=== PATIENT | female | born 1985 | race Caucasian/White ===

== ENCOUNTER 2020-11-12 21:19 | Observation (INO) | payer BC, SELFPAY ==
[2020-11-12 21:26] VITALS: BP 180/110; PULSE 118; RESP 17; TEMP 36.8; O2SAT 96; BMI 49.8
--- NOTE | 2020-11-12 21:49 | W.ED.ABDPA2 ---
Documented by User: JASON Shay 11/13/20 00:27 HPI - Abdominal Pain General: Chief Complaint: Abdominal Pain Stated Complaint: lower r sided abd pain/fever Time Seen by Provider: 11/12/20 21:38 History of Present Illness: HPI narrative: Patient is a 35-year-old female comes to the ED with abdominal pain. Patient says symptoms started this morning when she woke up. The pain is located in the right lower quadrant of her abdomen and she says its continue to get worse throughout the day. She says the pain is achy and is a 5 out of 10 if she is still and at rest but if she gets up and moves around it goes up to approximately an 8 out of 10. She took her temperature at home and said it was around 99 ?F. She reports a decreased appetite today but was able to eat and keep food down and says it did not cause any worsening pain. Denies any nausea, vomiting, bladder or bowel symptoms. Patient has a past surgical history of hysterectomy. Associated Symptoms: Denies chills, constipation, diarrhea, dysuria, fever(s), hematochezia, hematuria, nausea and vomiting Review of Systems Const: Reports: change in appetite (Decreased appetite today); Denies: fever(s), chills or fatigue Eyes: Denies: change in vision or eye discomfort ENMT: Denies: throat pain, odynophagia, nasal discharge or nasal congestion Card: Denies: chest pain, palpitations, edema, swelling of feet/ankles, dyspnea on exertion or orthopnea Resp: Denies: dyspnea, productive cough or non-productive cough GI: Reports: abdominal pain; Denies: nausea, vomiting, diarrhea, constipation or hematochezia : Denies: flank pain, dysuria or hematuria Musc: Denies: neck pain, back pain or extremity swelling Skin/Breast: Denies: rash or new lesions Neuro: Denies: headache(s), numbness in extremities or weakness in extremities Physical Exam Const: COMMON NORMALS: no acute distress, patient oriented x3 and alert GENERAL APPEARANCE: cooperative and comfortable NUTRITIONAL APPEARANCE: obese HENMT: COMMON NORMALS: normocephalic HEAD & SCALP: normocephalic MOUTH: Normal oral and palatal mucosa present THROAT: posterior oropharynx normal and uvula midline Eye: COMMON NORMALS: Equal, round and reactive pupils present PUPIL: Yes Equal, round and reactive pupils present Neck/C-Spine: COMMON NORMALS: supple GENERAL: Yes normal visual inspection Resp: COMMON NORMALS: normal respiratory effort, No retractions, No use of accessory muscles and clear to auscultation bilaterally AUSCULTATION: clear to auscultation bilaterally Cardio: COMMON NORMALS: regular rate, regular rhythm, S1 normal heart sound present, S2 normal heart sound present, No gallops present (Cardio), No clicks present (Cardio), No murmurs present (Cardio) and Peripheral pulses 2+ throughout RATE: regular rate RHYTHM: regular rhythm HEART SOUNDS: S1 normal heart sound present and S2 normal heart sound present PERIPHERAL PULSES: Peripheral pulses 2+ throughout GI: COMMON NORMALS: Normal to inspection, nondistended, normoactive bowel sounds present, Soft to palpation and no masses INSPECTION: Yes central obesity PALPATION: Yes Soft to palpation and Yes Tenderness to palpation present (GI) (No peritoneal signs) Details: RLQ (Positive McBurney's point tenderness) : COMMON NORMALS: Yes no CVA tenderness BLADDER/KIDNEY EXAM: Yes no CVA tenderness Back/Pelvis: COMMON NORMALS: no CVA tenderness Extremity: COMMON NORMALS: normal to inspection Neuro: COMMON NORMALS: patient oriented x3 SENSORIUM/ORIENTATION: Yes alert Skin: GENERAL SKIN EXAM: dry skin Course Consultations: Consultation #1: I contacted Dr. Jacobs the general surgeon on-call and told about patient case, exam findings of right lower quadrant tenderness, white blood cell count 12.[address] of the abdomen showing acute appendicitis. Dr. Jacobs agreed to have patient admitted anywhere me to start patient on IV Zosyn. Time: 11:38 Vital Signs: Vital signs: Vital Signs Temperature 98.2 F 11/12/20 21:26 Pulse Rate 84 11/12/20 23:01 Respiratory Rate 18 11/12/20 23:01 Blood Pressure 183/93 11/12/20 23:01 Pulse Oximetry 97 11/12/20 21:59 MDM - Abdominal Pain MDM Narrative: Medical decision making narrative: Patient is a 35-year-old female comes to the ED with right lower quadrant abdominal pain. She has tenderness to the right lower quadrant and positive McBurney's point but no peritoneal signs. White blood cell count 12.9 the rest of the labs are unremarkable. CT of abdomen pelvis shows acute appendicitis. I contacted Dr. Jacobs and told outpatient case and he wanted patient to be admitted and started on IV Zosyn. I discussed plan of care with patient and she understood and agreed with plan and Dr. Conde will be placing the admitting orders. Lab Data: Attestation: I reviewed the patient's lab results. Labs: Lab Results 11/12/20 11/12/20 11/12/20 Range/Units 21:45 22:05 22:05 WBC 12.9 H (4.0-10.0) 10^3/ uL RBC 4.10 (4.1-5.3) 10^6/u L Hgb 12.6 (11.5-15.3) g/dL Hct 37.4 (37.0-47.0) % MCV 91.2 (81-99) fl MCH 30.7 (28.0-34.0) pg MCHC 33.7 (30.0-36.0) g/dL RDW 12.5 (12.1-15.1) % Plt Count 247 (130-400) 10^3/c mm MPV 10.5 H (7.4-10.4) fL Neut % (Auto) 66.1 % Lymph % (Auto) 24.4 % [place] % (Auto) 8.0 % Eos % (Auto) 0.7 % Baso % (Auto) 0.3 % Neut # (Auto) 8.50 H (1.8-7.7) 10^3/u L Lymph # (Auto) 3.1 (0.8-4.8) 10^3/u L [place] # (Auto) 1.0 H (0.2-0.9) 10^3/u L Eos # (Auto) 0.1 (0.0-0.8) 10^3/u L Baso # (Auto) 0.0 (0.0-0.1) 10^3/u L Nucleated RBC % (a uto) 0 % Nucleated RBCs # 0.0 /100WBC Sodium 137 (136-145) mmol/L Potassium 3.6 (3.5-5.1) mmol/L Chloride 102 (98-107) mmol/L Carbon Dioxide 23 (22-29) mmol/L Anion Gap 15.6 (5-19) BUN 21 H (6-20) mg/dL Creatinine 0.9 (0.5-0.9) mg/dL GFR Calculation 70.5 L (90-130) mL/min Glucose 101 (65-115) mg/dL Calculated Osmolal ity 287 (285-295) mOsm/k g Calcium 9.1 (8.5-10.5) mg/dL Total Bilirubin 0.4 (0.15-1.2) mg/dL AST 18 (0-32) U/L ALT 19 (0-33) U/L Alkaline Phosphata se 49 (35-105) IU/L Total Protein 7.3 (6.6-8.7) g/dL Albumin 4.0 (3.5-5.2) g/dL Globulin 3.3 (1.3-4.6) g/dL Lipase 38 (13-60) U/L HCG, Qual (Negative) Urine Color Yellow (Yellow) Urine Appearance Clear (CLEAR) Urine pH 5 (5-7) Ur Specific Gravit y 1.020 (1.005-1.030) Urine Protein Neg (Negative) Urine Glucose (UA) Norm (Normal) Urine Ketones Negative (Negative) Urine Blood Neg (Negative) Urine Nitrate Negative (Negative) Urine Bilirubin Neg (Negative) Urine Urobilinogen 1 H (Negative) mg/dL Ur Leukocyte Kayla ase Negative (Negative) Urine RBC None (0-2) /hpf Urine WBC None (0-5) /hpf Ur Squamous Epith Cells 0-4 H (0-5) /hpf Amorphous Sediment Not Reportable Urine Bacteria Trace (NONE) /hpf 11/12/20 Range/Units 22:05 WBC (4.0-10.0) 10^3/ uL RBC (4.1-5.3) 10^6/u L Hgb (11.5-15.3) g/dL Hct (37.0-47.0) % MCV (81-99) fl MCH (28.0-34.0) pg MCHC (30.0-36.0) g/dL RDW (12.1-15.1) % Plt Count (130-400) 10^3/c mm MPV (7.4-10.4) fL Neut % (Auto) % Lymph % (Auto) % [place] % (Auto) % Eos % (Auto) % Baso % (Auto) % Neut # (Auto) (1.8-7.7) 10^3/u L Lymph # (Auto) (0.8-4.8) 10^3/u L [place] # (Auto) (0.2-0.9) 10^3/u L Eos # (Auto) (0.0-0.8) 10^3/u L Baso # (Auto) (0.0-0.1) 10^3/u L Nucleated RBC % (a uto) % Nucleated RBCs # /100WBC Sodium (136-145) mmol/L Potassium (3.5-5.1) mmol/L Chloride (98-107) mmol/L Carbon Dioxide (22-29) mmol/L Anion Gap (5-19) BUN (6-20) mg/dL Creatinine (0.5-0.9) mg/dL GFR Calculation (90-130) mL/min Glucose (65-115) mg/dL Calculated Osmolal ity (285-295) mOsm/k g Calcium (8.5-10.5) mg/dL Total Bilirubin (0.15-1.2) mg/dL AST (0-32) U/L ALT (0-33) U/L Alkaline Phosphata se (35-105) IU/L Total Protein (6.6-8.7) g/dL Albumin (3.5-5.2) g/dL Globulin (1.3-4.6) g/dL Lipase (13-60) U/L HCG, Qual Negative (Negative) Urine Color (Yellow) Urine Appearance (CLEAR) Urine pH (5-7) Ur Specific Gravit y (1.005-1.030) Urine Protein (Negative) Urine Glucose (UA) (Normal) Urine Ketones (Negative) Urine Blood (Negative) Urine Nitrate (Negative) Urine Bilirubin (Negative) Urine Urobilinogen (Negative) mg/dL Ur Leukocyte Kayla ase (Negative) Urine RBC (0-2) /hpf Urine WBC (0-5) /hpf Ur Squamous Epith Cells (0-5) /hpf Amorphous Sediment Urine Bacteria (NONE) /hpf Imaging Data ^: CT Abd/Pel: Attestation: I personally reviewed and interpreted this imaging study as follows: Radiologist's impression: [employer] [address] [address] Scan Report Signed with Heather Patient: Shani Baron Unit #: [id number] : 1985 Age/Sex: 35 / F ADM Date: 11/12/20 Loc: ER Room/Bed: Attending Dr: Ordering Provider/Ordering MD: Valerie Choudhury Date of Service: 11/12/20 Procedure(s): CT abdomen pelvis w con* [id number] Accession Number(s): [id number] Report Number: [id number]/CT abdomen pelvis w con* [id number] THIS REPORT CONTAINS FINDINGS THAT MAY BE CRITICAL TO PATIENT CARE. The findings were verbally communicated via telephone conference with VALERIE CHOUDHURY at 11:15 PM CDT on 11/12/2020. The findings were acknowledged and understood. Radiation Dose CTDIVOL = (mGy): DLP = 1715.94 (mGy-cm) Addendum Dictated By: Sang Oneal Addendum Signed By: Sang Oneal Signed Date/Time: 11/12/20 9026 Addendum Cosigned By: PROCEDURE INFORMATION: Exam: CT Abdomen And Pelvis With Contrast Exam date and time: 11/12/2020 9:53 PM Age: 35 years old Clinical indication: Abdominal pain; Localized; Right lower quadrant (rlq); Prior surgery; Surgery date: 6+ months; Surgery type: Hyst; Patient HX: C/O rlq abd pain; Additional info: Rlq abdominal pain TECHNIQUE: Imaging protocol: Computed tomography of the abdomen and pelvis with contrast. Radiation optimization: All CT scans at this facility use at least one of these dose optimization techniques: automated exposure control; mA and/or kV adjustment per patient size (includes targeted exams where dose is matched to clinical indication); or iterative reconstruction. Contrast material: OMNI 300; Contrast volume: 95 ml; Contrast route: INTRAVENOUS (IV); COMPARISON: CR Chest 2 views* [id number] 04/01/2018 4:59 PM RADIATION DOSE METRICS: Total DLP (mGy-cm): 1715.94 FINDINGS: Liver: Normal. No mass. Gallbladder and bile ducts: Normal. No calcified stones. No ductal dilation. Pancreas: Normal. No ductal dilation. Spleen: Normal. No splenomegaly. Adrenal glands: Normal. No mass. Kidneys and ureters: Normal. No hydronephrosis. Stomach and bowel: Unremarkable. No obstruction. No mucosal thickening. Appendix: The appendix is well seen. Thickened appearance up to 13 mm. There is no significant stranding around the appendix. There is a small calcified appendicolith in the mid body portion. Intraperitoneal space: No intraperitoneal fluid collection. No free intraperitoneal air. Vasculature: Unremarkable. No abdominal aortic aneurysm. Lymph nodes: Unremarkable. No enlarged lymph nodes. Urinary bladder: Unremarkable as visualized. Reproductive: Small cyst of the left ovary measures 3.6 cm x 3.[address] features. Uterus is small in volume. No dedicated follow-up recommended for this finding. Bones/joints: Unremarkable. No acute fracture. Soft tissues: Unremarkable. CT/CT abdomen pelvis w con* [id number] IMPRESSION: The appendix has an abnormal diameter. There is no appreciable inflammatory stranding changes around the appendix. The finding is equivocal for acute appendicitis. Clinical correlation necessary. Radiation Dose CTDIVOL = (mGy): DLP = 1715.94 (mGy-cm) Dictated By: Sang Oneal Signed By: Sang Oneal Signed Date/Time: 11/12/202312 DD/ 10 Discharge Plan Discharge Admit Provider: Ronal Jacobs Coding Level of Care Code ED Assembling Motor Builder for Chg Fwd Exam Comprehensive Documented by User: Gab Conde DO 11/13/20 00:53 HPI - Abdominal Pain General: Chief Complaint: Abdominal Pain Stated Complaint: lower r sided abd pain/fever Time Seen by Provider: 11/12/20 21:38 Course Vital Signs: Vital signs: Vital Signs Temperature 98.2 F 11/12/20 21:26 Pulse Rate 84 11/12/20 23:01 Respiratory Rate 18 11/12/20 23:01 Blood Pressure 183/93 11/12/20 23:01 Pulse Oximetry 97 11/12/20 21:59 MDM - Abdominal Pain MDM Narrative: Medical decision making narrative: 35-year-old patient seen by Mr. Choudhury, JASON?Simeon. I agree with his history, evaluation, and treatment. This lady has acute appendicitis. Surgeon was consulted from the ER, and will see the patient as an inpatient. Observation orders were written by me. Lab Data: Labs: Lab Results 11/12/20 11/12/20 11/12/20 Range/Units 21:45 22:05 22:05 WBC 12.9 H (4.0-10.0) 10^3/ uL RBC 4.10 (4.1-5.3) 10^6/u L Hgb 12.6 (11.5-15.3) g/dL Hct 37.4 (37.0-47.0) % MCV 91.2 (81-99) fl MCH 30.7 (28.0-34.0) pg MCHC 33.7 (30.0-36.0) g/dL RDW 12.5 (12.1-15.1) % Plt Count 247 (130-400) 10^3/c mm MPV 10.5 H (7.4-10.4) fL Neut % (Auto) 66.1 % Lymph % (Auto) 24.4 % [place] % (Auto) 8.0 % Eos % (Auto) 0.7 % Baso % (Auto) 0.3 % Neut # (Auto) 8.50 H (1.8-7.7) 10^3/u L Lymph # (Auto) 3.1 (0.8-4.8) 10^3/u L [place] # (Auto) 1.0 H (0.2-0.9) 10^3/u L Eos # (Auto) 0.1 (0.0-0.8) 10^3/u L Baso # (Auto) 0.0 (0.0-0.1) 10^3/u L Nucleated RBC % (a uto) 0 % Nucleated RBCs # 0.0 /100WBC Sodium 137 (136-145) mmol/L Potassium 3.6 (3.5-5.1) mmol/L Chloride 102 (98-107) mmol/L Carbon Dioxide 23 (22-29) mmol/L Anion Gap 15.6 (5-19) BUN 21 H (6-20) mg/dL Creatinine 0.9 (0.5-0.9) mg/dL GFR Calculation 70.5 L (90-130) mL/min Glucose 101 (65-115) mg/dL Calculated Osmolal ity 287 (285-295) mOsm/k g Calcium 9.1 (8.5-10.5) mg/dL Total Bilirubin 0.4 (0.15-1.2) mg/dL AST 18 (0-32) U/L ALT 19 (0-33) U/L Alkaline Phosphata se 49 (35-105) IU/L Total Protein 7.3 (6.6-8.7) g/dL Albumin 4.0 (3.5-5.2) g/dL Globulin 3.3 (1.3-4.6) g/dL Lipase 38 (13-60) U/L HCG, Qual (Negative) Urine Color Yellow (Yellow) Urine Appearance Clear (CLEAR) Urine pH 5 (5-7) Ur Specific Gravit y 1.020 (1.005-1.030) Urine Protein Neg (Negative) Urine Glucose (UA) Norm (Normal) Urine Ketones Negative (Negative) Urine Blood Neg (Negative) Urine Nitrate Negative (Negative) Urine Bilirubin Neg (Negative) Urine Urobilinogen 1 H (Negative) mg/dL Ur Leukocyte Kayla ase Negative (Negative) Urine RBC None (0-2) /hpf Urine WBC None (0-5) /hpf Ur Squamous Epith Cells 0-4 H (0-5) /hpf Amorphous Sediment Not Reportable Urine Bacteria Trace (NONE) /hpf 11/12/20 Range/Units 22:05 WBC (4.0-10.0) 10^3/ uL RBC (4.1-5.3) 10^6/u L Hgb (11.5-15.3) g/dL Hct (37.0-47.0) % MCV (81-99) fl MCH (28.0-34.0) pg MCHC (30.0-36.0) g/dL RDW (12.1-15.1) % Plt Count (130-400) 10^3/c mm MPV (7.4-10.4) fL Neut % (Auto) % Lymph % (Auto) % [place] % (Auto) % Eos % (Auto) % Baso % (Auto) % Neut # (Auto) (1.8-7.7) 10^3/u L Lymph # (Auto) (0.8-4.8) 10^3/u L [place] # (Auto) (0.2-0.9) 10^3/u L Eos # (Auto) (0.0-0.8) 10^3/u L Baso # (Auto) (0.0-0.1) 10^3/u L Nucleated RBC % (a uto) % Nucleated RBCs # /100WBC Sodium (136-145) mmol/L Potassium (3.5-5.1) mmol/L Chloride (98-107) mmol/L Carbon Dioxide (22-29) mmol/L Anion Gap (5-19) BUN (6-20) mg/dL Creatinine (0.5-0.9) mg/dL GFR Calculation (90-130) mL/min Glucose (65-115) mg/dL Calculated Osmolal ity (285-295) mOsm/k g Calcium (8.5-10.5) mg/dL Total Bilirubin (0.15-1.2) mg/dL AST (0-32) U/L ALT (0-33) U/L Alkaline Phosphata se (35-105) IU/L Total Protein (6.6-8.7) g/dL Albumin (3.5-5.2) g/dL Globulin (1.3-4.6) g/dL Lipase (13-60) U/L HCG, Qual Negative (Negative) Urine Color (Yellow) Urine Appearance (CLEAR) Urine pH (5-7) Ur Specific Gravit y (1.005-1.030) Urine Protein (Negative) Urine Glucose (UA) (Normal) Urine Ketones (Negative) Urine Blood (Negative) Urine Nitrate (Negative) Urine Bilirubin (Negative) Urine Urobilinogen (Negative) mg/dL Ur Leukocyte Kayla ase (Negative) Urine RBC (0-2) /hpf Urine WBC (0-5) /hpf Ur Squamous Epith Cells (0-5) /hpf Amorphous Sediment Urine Bacteria (NONE) /hpf Discharge Plan Discharge Admit Provider: Reynaldo,Ronal Coding Level of Care Code ED Assembling Motor Builder for Chg Fwd Exam Comprehensive
--- NOTE | 2020-11-12 21:53 | CTR_ITS ---
PROCEDURE INFORMATION: Exam: CT Abdomen And Pelvis With Contrast Exam date and time: 11/12/2020 9:53 PM Age: 35 years old Clinical indication: Abdominal pain; Localized; Right lower quadrant (rlq); Prior surgery; Surgery date: 6+ months; Surgery type: Hyst; Patient HX: C/O rlq abd pain; Additional info: Rlq abdominal pain TECHNIQUE: Imaging protocol: Computed tomography of the abdomen and pelvis with contrast. Radiation optimization: All CT scans at this facility use at least one of these dose optimization techniques: automated exposure control; mA and/or kV adjustment per patient size (includes targeted exams where dose is matched to clinical indication); or iterative reconstruction. Contrast material: OMNI 300; Contrast volume: 95 ml; Contrast route: INTRAVENOUS (IV); COMPARISON: CR Chest 2 views* [id number] 04/01/2018 4:59 PM RADIATION DOSE METRICS: Total DLP (mGy-cm): 1715.94 FINDINGS: Liver: Normal. No mass. Gallbladder and bile ducts: Normal. No calcified stones. No ductal dilation. Pancreas: Normal. No ductal dilation. Spleen: Normal. No splenomegaly. Adrenal glands: Normal. No mass. Kidneys and ureters: Normal. No hydronephrosis. Stomach and bowel: Unremarkable. No obstruction. No mucosal thickening. Appendix: The appendix is well seen. Thickened appearance up to 13 mm. There is no significant stranding around the appendix. There is a small calcified appendicolith in the mid body portion. Intraperitoneal space: No intraperitoneal fluid collection. No free intraperitoneal air. Vasculature: Unremarkable. No abdominal aortic aneurysm. Lymph nodes: Unremarkable. No enlarged lymph nodes. Urinary bladder: Unremarkable as visualized. Reproductive: Small cyst of the left ovary measures 3.6 cm x 3.[address] features. Uterus is small in volume. No dedicated follow-up recommended for this finding. Bones/joints: Unremarkable. No acute fracture. Soft tissues: Unremarkable. CT/CT abdomen pelvis w con* [id number] IMPRESSION: The appendix has an abnormal diameter. There is no appreciable inflammatory stranding changes around the appendix. The finding is equivocal for acute appendicitis. Clinical correlation necessary. Radiation Dose CTDIVOL = (mGy): DLP = 1715.94 (mGy-cm)
[2020-11-12 21:59] VITALS: BP 152/90; PULSE 84; RESP 18; O2SAT 97
[2020-11-12 22:16] LABS: Basophils % 0.3 %; Eosinophils # 0.1 10^3/uL (0.0-0.8); Eosinophils % 0.7 %; Hematocrit 37.4 % (37.0-47.0); Hemoglobin 12.6 g/dL (11.5-15.3); Lymphocytes # 3.1 10^3/uL (0.8-4.8); Lymphocytes % 24.4 %; Mean Corpuscular HGB Conc 33.7 g/dL (30.0-36.0); Mean Corpuscular Hemoglobin 30.7 pg (28.0-34.0); Mean Corpuscular Volume 91.2 fl (81-99); Mean Platelet Volume 10.5 fL (7.4-10.4); Neutrophils % 66.1 %; Nucleated Red Blood Cells % 0 %; Platelet Count 247 10^3/cmm (130-400); Red Cell Distribution Width 12.5 % (12.1-15.1); White Blood Count 12.9 10^3/uL (4.0-10.0)
[2020-11-12] MEDS: sodium chloride 0.9% 500 ML 999 ML IV (22:25)
[2020-11-12] MEDS: iohexol 300 mg/mL 100 mL Btl IV (22:25)
[2020-11-12 22:38] LABS: HCG, Serum Qual Negative (Negative)
[2020-11-12 22:44] LABS: Alanine Aminotransferase 19 U/L (0-33); Alkaline Phosphatase 49 IU/L (35-105); Anion Gap 15.6 (5-19); Aspartate Amino Transferase 18 U/L (0-32); Blood Urea Nitrogen 21 mg/dL (6-20); Calcium 9.1 mg/dL (8.5-10.5); Carbon Dioxide 23 mmol/L (22-29); Chloride 102 mmol/L (98-107); Globulin 3.3 g/dL (1.3-4.6); Glomerular Filtration Rate 70.5 mL/min (90-130); Glucose 101 mg/dL (65-115); Lipase 38 U/L (13-60); Osmolality Calculated 287 mOsm/kg (285-295); Potassium 3.6 mmol/L (3.5-5.1); Sodium 137 mmol/L (136-145); Total Bilirubin 0.4 mg/dL (0.15-1.2); Total Protein 7.3 g/dL (6.6-8.7)
[2020-11-12 23:00] LABS: Bilirubin Urine Neg (Negative); Blood Urine Neg (Negative); Glucose Urine UA Norm (Normal); Ketones Urine Negative (Negative); Leukocyte Esterase Urine Negative (Negative); Nitrate Urine Negative (Negative); Protein Urine Neg (Negative); Urine Appearance Clear (CLEAR); Urine Color Yellow (Yellow); Urobilinogen Urine 1 mg/dL (Negative); pH Urine 5 (5-7)
[2020-11-12 23:01] VITALS: BP 183/93; PULSE 84; RESP 18
[2020-11-12 23:01] LABS: Add Urine Culture? No; Bacteria Urine TRACE /hpf; Squamous Epithelial Cell Urine 0-4 /hpf (0-5)
[2020-11-13] VITALS (16 sets, daily range): BP systolic 133–180; BP diastolic 68–103; PULSE 70–102; RESP 15–19; TEMP 36.3–36.8; O2SAT 93–100; BMI 55.6
[2020-11-13] MEDS: ketorolac 30 mg/mL INJ IVP (00:48)
[2020-11-13] MEDS: piperacillin-tazobactam 3.375 GM in sodium chloride 0.9% (plus) 50 ML IV (00:49)
--- NOTE | 2020-11-13 00:59 | PC.NURSE ---
Resting, eyes closed, easily awakened. Repositioned for comfort. Lights down at pt request. Denies further needs at this time. VSS.
[2020-11-13] MEDS: lactated ringers 1,000 ML 125 ML IV (01:57)
[2020-11-13] MEDS: piperacillin-tazobactam 3.375 GM in sodium chloride 0.9% (plus) 100 ML IV (09:15)
--- NOTE | 2020-11-13 09:47 | PC.NURSE ---
updated patient's mom on patient going to surgery this morning. patient was just taken to surgery
--- NOTE | 2020-11-13 10:01 | P.ANESASSM_ITS ---
Pre-Anesthetic Assessment Pre-Anesthetic Assessment: Height/Weight: Height 1.63 m Weight 147.021 kg Temp Pulse Resp BP Pulse Ox 97.9 F 84 18 143/92 99 11/13/20 08:00 11/13/20 09:58 11/13/20 09:58 11/13/20 09:58 11/13/20 09:58 Preop Diagnosis: acute appendicitis Proposed Procedure: Operation Date: 11/13/20 10:30 Proposed Procedures p Laparoscopic Appendectomy(Not Applicable) - Ronal Jacobs MD Familial anesthetic complications: PONV Was Beta Chele taken within 24 hours: N/A Was Clonidine taken within 24 hours: N/A Last intake: Intake Last Liquid Date 11/12/20 Last Liquid Time 18:00 Last Solid Date 11/12/20 Last Solid Time 18:00 Social: Social History: No alcohol and No tobacco Exam: Pre-Anes Outpt Exam: alert, oriented x 3, clear to auscultation bilaterally and regular rate & rhythm Airway: Cervical ROM: WNL MP: 3 Dentition: Full CV/HEM: CV/HEM: HTN GI: GI: GERD Metabolic: Metabolic: Morbid obesity Anesthetic Plan: ASA status: 2 Anesthesia: General Risk of > 500 ml b lood loss (7ml/kg in children): No Meds/Allergies Current Medications: Current Medications Generic Name Dose Route Start Last Admin Trade Name Freq PRN Reason Stop Dose Admin Lactated Ringer's 1,000 mls @ 125 m ls/hr 11/13/20 01:24 11/13/20 01:57 Lactated Ringers IV 125 mls/hr .Q8H DEWAYNE Administration Piperacillin Sod/T azobactam 100 mls @ 25 mls/ hr 11/13/20 09:00 11/13/20 09:15 Sod 3.375 gm/ So dium Chloride IV 25 mls/hr Q8H DEWAYNE Administration Protocol Data Anesthesia CBC & Chem 7: 11/12/20 22:05 11/12/20 22:05 Other Labs: Laboratory Results - last 48 hr 11/12/20 11/12/20 11/12/20 21:45 22:05 22:05 WBC 12.9 H RBC 4.10 Hgb 12.6 Hct 37.4 MCV 91.2 MCH 30.7 MCHC 33.7 RDW 12.5 Plt Count 247 MPV 10.5 H Neut % (Auto) 66.1 Lymph % (Auto) 24.4 [place] % (Auto) 8.0 Eos % (Auto) 0.7 Baso % (Auto) 0.3 Neut # (Auto) 8.50 H Lymph # (Auto) 3.1 [place] # (Auto) 1.0 H Eos # (Auto) 0.1 Baso # (Auto) 0.0 Nucleated RBC % (auto) 0 Nucleated RBCs # 0.0 Sodium 137 Potassium 3.6 Chloride 102 Carbon Dioxide 23 Anion Gap 15.6 BUN 21 H Creatinine 0.9 GFR Calculation 70.5 L Glucose 101 Calculated Osmolality 287 Calcium 9.1 Total Bilirubin 0.4 AST 18 ALT 19 Alkaline Phosphatase 49 Total Protein 7.3 Albumin 4.0 Globulin 3.3 Lipase 38 HCG, Qual Urine Color Yellow Urine Appearance Clear Urine pH 5 Ur Specific [place] 1.020 Urine Protein Neg Urine Glucose (UA) Norm Urine Ketones Negative Urine Blood Neg Urine Nitrate Negative Urine Bilirubin Neg Urine Urobilinogen 1 H Ur Leukocyte Esterase Negative Urine RBC None Urine WBC None Ur Squamous Epith Cells 0-4 H Amorphous Sediment Not Reportable Urine Bacteria Trace 11/12/20 22:05 WBC RBC Hgb Hct MCV MCH MCHC RDW Plt Count MPV Neut % (Auto) Lymph % (Auto) [place] % (Auto) Eos % (Auto) Baso % (Auto) Neut # (Auto) Lymph # (Auto) [place] # (Auto) Eos # (Auto) Baso # (Auto) Nucleated RBC % (auto) Nucleated RBCs # Sodium Potassium Chloride Carbon Dioxide Anion Gap BUN Creatinine GFR Calculation Glucose Calculated Osmolality Calcium Total Bilirubin AST ALT Alkaline Phosphatase Total Protein Albumin Globulin Lipase HCG, Qual Negative Urine Color Urine Appearance Urine pH Ur Specific [place] Urine Protein Urine Glucose (UA) Urine Ketones Urine Blood Urine Nitrate Urine Bilirubin Urine Urobilinogen Ur Leukocyte Esterase Urine RBC Urine WBC Ur Squamous Epith Cells Amorphous Sediment Urine Bacteria Cardiac Studies: No Data to Display
--- NOTE | 2020-11-13 10:09 | P.HP_ITS ---
Providers/Chief Complaint Admitting Physician: Ronal Jacobs MD Primary Care Provider: Sariah Hoff Chief Complaint: lower r sided abd pain/fever History of Present Illness Shani Baron is a 35 year old female who presented to the ER last night after she woke up yesterday morning with right-sided abdominal pain. The pain did not radiate, was worse with physical activity and progressively got worse during the course of the day. She denies any nausea, vomiting, fevers, chills, constipation or diarrhea. No urinary symptoms. Review of Systems General: Reports: 10 or more systems reviewed and unremarkable except in HPI and below Medications/Allergies Home Medications Medication Instructions Recorded Confirmed Last Taken Type lisinopril 20 mg PO DAILY 11/13/20 11/13/20 Unknown History omeprazole 40 mg PO DAILY 11/13/20 11/13/20 Unknown History Allergies Allergy/AdvReac Type Severity Reaction Status Date / Time hydrocodone Allergy ALGY-Hives Verified 11/12/20 21:29 prednisone Allergy ALGY-Swell Verified 11/12/20 21:29 Lip/Tongue/Throat PFSH Acute PFSH: Medical History GERD (gastroesophageal reflux disease) Hypertension Surgical History History of delivery S/P partial hysterectomy Vitals/I&O/Wt Last Vital Signs Temp 97.9 F 11/13/20 08:00 Pulse 84 11/13/20 09:58 Resp 18 11/13/20 09:58 BP 143/92 11/13/20 09:58 Pulse Ox 99 11/13/20 09:58 11/12/20 11/13/20 11/13/20 22:59 06:59 14:59 Intake Total 550 / 550 Balance 550 / 550 Weight last 48 hrs Weight 324 lb 2 oz Weight 290 lb Physical Exam Narrative: EXAM NARRATIVE: HEENT: Normocephalic Eye: Sclera /conjunctiva normal Respiratory and chest: Bilateral clear breath sounds on auscultation Cardiovascular: Normal S1 and S2 heart sounds Abdomen: Soft to palpation, tender right lower quadrant, voluntary guarding, no rigidity Neurological: Oriented to place person and time Skin: Intact, no lesions appreciated on gross exam Data : 11/12/20 22:05 11/12/20 22:05 A&P Assessment and plan (1) Acute appendicitis: 35-year-old female with right lower quadrant pain, WBC 12.[address] scan showing acute appendicitis without any evidence of perforation Plan for laparoscopic possible open appendectomy Procedure, risks, benefits and alternatives have been discussed with the patient who wishes to proceed with surgery. Status: Acute Attestations Medical Necessity Statement*: Acute appendicitis Coding Level of Care Code Acute [facility] Diagnoses Acute appendicitis K35.80
[2020-11-13] MEDS: meperidine 50 mg/mL INJ 12.5 MG IVP (11:29)
[2020-11-13] MEDS: oxyCODONE-APAP 5-325 mg Tablet 1 TAB PO (12:11)
[2020-11-13] MEDS: sodium chloride 0.9% 1,000 ML 30 ML IV (12:14)
--- NOTE | 2020-11-13 13:01 | P.OP_ITS ---
Operative Report Date of procedure: November 13, 2020 Pre-op Diagnosis: acute appendicitis Post-op diagnosis: same Procedure Done: Laparoscopic appendectomy Specimens removed/disposition: Appendix Surgeon: Ronal Jacobs Anesthesia: General Condition: stable Disposition: PACU Procedure: The patient was taken to the Operating Room and intubated under general anesthesia after antibiotic had been administered. Using a 15 blade, a 1-cm infraumbilical incision was made and using open Mary Jane technique, the peritoneal cavity was entered. A 12mm port with balloon was placed and 14 mm of pneumoperitoneum was created and 10-mm 30 degree scope was introduced. Two separate 5mm ports were placed in the left and right lower quadrant under direct visualization. The appendix was noted in the right lower quadrant and appeared acutely inflamed.. Using [place] forceps, an opening was made in the mesoappendix near the base of the appendix. An Endo KRISTOFER stapler 45mm long 3.5mm blue load was introduced to divide the appendix at it's base. Using electrocau home, the mesoappendix including the appendicular artery was divided. There was no bleeding noted and the staple line appeared intact. An EndoCatch bag was introduced to remove the appendix. All three ports were removed under direct visualization and there was no bleeding noted on the port sites. 10 cc of 0.5% Marcaine was infiltrated at the port sites. The fascia at the umbilical port was closed using figure of eight 0-Vicryl sutures and subcutaneous tissue was approximated using 3-0 Vicryl and skin at all 3 port sites was closed using 4-0 Monocryl and Dermabond.
--- NOTE | 2020-11-13 13:02 | P.DS_ITS ---
Discharge Providers Date of Admission: 11/13/20 01:24 Date of Discharge: November 13, 2020 Attending Provider at Admission: Ronal Jacobs MD Attending Provider at Discharge: Ronal Jacobs MD Primary Care Provider: Sariah Luis Eduardo Diagnoses at Discharge Discharge Diagnosis (1) Acute appendicitis: Status: Resolved Reason for Visit Reason for Visit: lower r sided abd pain/fever Hospital Course Hospital Course Shani Baron is a 35 year old female who presented to the ER last night after she woke up yesterday morning with right-sided abdominal pain. The pain did not radiate, was worse with physical activity and progressively got worse during the course of the day. She denies any nausea, vomiting, fevers, chills, constipation or diarrhea. No urinary symptoms. Patient was admitted overnight for IV antibiotics and underwent laparoscopic appendectomy. At time of discharge her vital signs are stable, she is tolerating a clear liquid diet and pain controlled with oral pain medications. Discharge Data Data Completed and Pending: Completed Studies During Hospitalization Category Date Time Status CT abdomen pelvis w con* [id number] Urge nt Cat Scan 11/12/20 21:53 Completed Pending at discharge Category Date Time Status Pathology: Surgic al [PTH] Routine Pth 11/13/20 10:46 Received Labs from last 24 hours 11/12/20 11/12/20 11/12/20 22:05 22:05 22:05 WBC 12.9 H RBC 4.10 Hgb 12.6 Hct 37.4 MCV 91.2 MCH 30.7 MCHC 33.7 RDW 12.5 Plt Count 247 MPV 10.5 H Neut % (Auto) 66.1 Lymph % (Auto) 24.4 [place] % (Auto) 8.0 Eos % (Auto) 0.7 Baso % (Auto) 0.3 Neut # (Auto) 8.50 H Lymph # (Auto) 3.1 [place] # (Auto) 1.0 H Eos # (Auto) 0.1 Baso # (Auto) 0.0 Nucleated RBC % (a uto) 0 Nucleated RBCs # 0.0 Sodium 137 Potassium 3.6 Chloride 102 Carbon Dioxide 23 Anion Gap 15.6 BUN 21 H Creatinine 0.9 GFR Calculation 70.5 L Glucose 101 Calculated Osmolal ity 287 Calcium 9.1 Total Bilirubin 0.4 AST 18 ALT 19 Alkaline Phosphata se 49 Total Protein 7.3 Albumin 4.0 Globulin 3.3 Lipase 38 HCG, Qual Negative Urine Color Urine Appearance Urine pH Ur Specific Gravit y Urine Protein Urine Glucose (UA) Urine Ketones Urine Blood Urine Nitrate Urine Bilirubin Urine Urobilinogen Ur Leukocyte Kayla ase Urine RBC Urine WBC Ur Squamous Epith Cells Amorphous Sediment Urine Bacteria 11/12/20 21:45 WBC RBC Hgb Hct MCV MCH MCHC RDW Plt Count MPV Neut % (Auto) Lymph % (Auto) [place] % (Auto) Eos % (Auto) Baso % (Auto) Neut # (Auto) Lymph # (Auto) [place] # (Auto) Eos # (Auto) Baso # (Auto) Nucleated RBC % (a uto) Nucleated RBCs # Sodium Potassium Chloride Carbon Dioxide Anion Gap BUN Creatinine GFR Calculation Glucose Calculated Osmolal ity Calcium Total Bilirubin AST ALT Alkaline Phosphata se Total Protein Albumin Globulin Lipase HCG, Qual Urine Color Yellow Urine Appearance Clear Urine pH 5 Ur Specific Gravit y 1.020 Urine Protein Neg Urine Glucose (UA) Norm Urine Ketones Negative Urine Blood Neg Urine Nitrate Negative Urine Bilirubin Neg Urine Urobilinogen 1 H Ur Leukocyte Kayla ase Negative Urine RBC None Urine WBC None Ur Squamous Epith Cells 0-4 H Amorphous Sediment Not Reportable Urine Bacteria Trace Vitals: Last Vital Signs Temp 97.8 F 11/13/20 12:00 Pulse 70 11/13/20 12:00 Resp 18 11/13/20 12:11 BP 147/83 11/13/20 12:00 Pulse Ox 99 11/13/20 12:00 Discharge Plan Discharge Patient Disposition: Home Condition: Stable Prescriptions: New Zofran 4 mg tablet 4 mg PO Q6H PRN (Reason: nausea and vomiting) Qty: 20 RF: 0 Colace 100 mg capsule 100 mg PO BID Qty: 30 RF: 0 Percocet 5-325 mg tablet 1 tab PO Q6H PRN (Reason: pain) Qty: 20 RF: 0 Continued omeprazole 20 mg Capsule,Delayed Release(Dr/Ec) 40 mg PO DAILY RF: 0 lisinopril 20 mg Tablet 20 mg PO DAILY RF: 0 Discharge Orders: Discharge Order (Routine); Ordered 11/13/20 Ordered By: Ronal Jacobs Referrals: Ronal Jacobs MD [Physician] - 11/24/20 9:30 am Patient Instructions: Oxycodone/Acetaminophen (By mouth), Laxative, Stool Softeners (By mouth), Ondansetron (By mouth), Laparoscopic Appendectomy (DC), Opioid Safety Activity Restrictions/Additional Instructions: Diet Advance to normal diet as tolerated, increase fluid intake as much as possible. Activity Avoid strenuous activity for 2 weeks but continue with daily activities including walking as tolerated. Do not lift more than 10 pounds for 2 weeks Return to work/school You can return to work/ school whenever you feel ready as long as you don?t have to lift more than 10 pounds at work. If you have paperwork that needs to be completed for time off from work, please contact my office Driving You can resume driving once you stop using narcotic pain medications, and transition to non-opioid pain medications like Tylenol, Motrin, Aleve, etc. Medications Pain Take opioid pain medications as prescribed and transition to non-opioid pain medications like Tylenol, Motrin, Aleve etc. over the next few days. The goal of the pain medications is to make the pain bearable and not to be pain free since you recently had surgery. Resume all home medications after surgery as per the medication reconciliation list Nausea Nausea is common after surgery, take nausea medications as needed and stay on a liquid bland diet until nausea resolves. Constipation The combination of surgery, anesthesia and pain medications can result in constipation. Take stool softeners as prescribed. If you do not have a bowel movement in 3 days, please take an [id number] laxative like MiraLAX to address the constipation. Shower It is ok to shower but avoid getting the wound wet for 48 hours after surgery. Do not soak in bathtub, swimming pool or hot tub for 2 weeks. Wound care If glue has been used on your incisions after surgery, the glue on the incision will peel slowly over the next two weeks. The stitches used are dissolvable and will not need to be removed. Do not apply antibiotics or other medications on the incision Problems with the wound: you can develop some redness around the incision from bruising after surgery. If there is increasing pain, redness, tenderness around the incision with or without drainage, please contact my office to rule out an infection. Sometimes the skin at the incisions can separate, resulting in reopening of the wound. Cover the wound with antibiotic cream and sterile dressings and contact my office. Contact physician Call the office at [phone] during office hours or go the Emergency Room ?Fever to 100.4 or greater ?Shaking chills ?Pain that increases over time ?Redness, warmth, or pus draining from incision sites ?Persistent nausea or inability to take in liquids Discharge Attestations Time Spent in Discharge Care*: less than 30 min Quality Metrics Clinical Quality Measures During this hospital stay, did patient experience: None Coding Level of Care Code Acute [facility] note Diagnoses Acute appendicitis K35.80
--- NOTE | 2020-11-13 15:13 | ANE.PACU2 ---
Inpatient post-anesthesia follow up: Airway intact: Yes Vital signs: Temperature 97.8 F Pulse Rate [Monito r] 118 Pulse Rate 70 Respiratory Rate 18 Blood Pressure [Le ft Arm] 180/110 Blood Pressure 147/83 Pulse Oximetry 99 Oxygen Delivery Me thod Room Air Oxygen Flow Rate 3 Fraction of Inspir ed Oxygen Hydration adequate: Yes Pain level: 2 Mental status: Baseline
--- NOTE | 2020-11-16 10:00 | PC.SOCIAL ---
discharge follow up call made. Patient isn't having to take nausea meds, hasn't taken many pain pills. Asked about removing dressing and showering, told her it was ok to shower just not to soak and could leave her incision open to air. patient has follow up appointment with Dr. Jacobs. Pt aware to not lift more than 10 lbs [id number].
== END 2020-11-13 14:00 | disposition home or self-care (01) ==
LOC: ER 21:38 → MEDSURG 11-13 06:47
PROVIDERS: Admitting Provider Surgery; Emergency Provider Physician Assistant; PCP Nurse Practitioner Family; Visit Provider Surgery
PROC: 0DTJ4ZZ Resection of Appendix, Percutaneous Endoscopic Approach (ICD-10-PCS; CPT 44970; principal; 2020-11-13 10:30)
DX: K35.80 Unspecified acute appendicitis (principal); K21.9 Gastro-esophageal reflux disease without esophagitis; I10 Essential (primary) hypertension; E66.01 Morbid (severe) obesity due to excess calories; Z68.43 Body mass index [BMI] 50.0-59.9, adult
CPT/HCPCS: 44970; 74177; 80053; 81001; 83690; 84703; 85025; 88304; 96361; 96365; 96375; 99285; G0378; J1100; J1885; J2175; J2250; J2405; J2543; J2704; J2710; J3010; J3490; J7030; J7040; Q9967

== ENCOUNTER 2020-12-21 10:33 | Outpatient (CLI) | payer BC, SELFPAY ==
[2020-12-21 11:15] LABS: Basophils % 0.4 %; Eosinophils # 0.2 10^3/uL (0.0-0.8); Eosinophils % 2.1 %; Hematocrit 42.7 % (37.0-47.0); Hemoglobin 13.3 g/dL (11.5-15.3); Lymphocytes # 2.4 10^3/uL (0.8-4.8); Lymphocytes % 24.3 %; Mean Corpuscular HGB Conc 31.1 g/dL (30.0-36.0); Mean Corpuscular Hemoglobin 30.2 pg (28.0-34.0); Mean Platelet Volume 10.5 fL (7.4-10.4); Monocytes # 0.7 10^3/uL (0.2-0.9); Monocytes % 6.7 %; Neutrophils # 6.48 10^3/uL (1.8-7.7); Neutrophils % 66.2 %; Nucleated Red Blood Cells % 0 %; Platelet Count 224 10^3/cmm (130-400); Red Cell Distribution Width 12.4 % (12.1-15.1); White Blood Count 9.8 10^3/uL (4.0-10.0)
== END 2020-12-21 10:34 | disposition home or self-care (01) ==
LOC: LAB 10:39
PROVIDERS: PCP Nurse Practitioner Family; Visit Provider Surgery
DX: D3A.020 Benign carcinoid tumor of the appendix (principal)
CPT/HCPCS: 85025

== ENCOUNTER → 2021-02-18 12:34 | Outpatient (BNVA) | payer BC, SELFPAY | PROVIDERS: PCP Nurse Practitioner Family; Visit Provider Nurse Practitioner | DX: L02.91 Cutaneous abscess, unspecified (principal) | CPT/HCPCS: 87070; 87077; 87184 ==

== ENCOUNTER → 2021-03-26 16:17 | Outpatient (BNVA) | payer BC, SELFPAY | PROVIDERS: PCP Nurse Practitioner Family; Visit Provider Surgery | DX: Z01.812 Encounter for preprocedural laboratory examination (principal); Z20.822 Contact with and (suspected) exposure to COVID-19 | CPT/HCPCS: 87635 ==

== ENCOUNTER 2021-03-29 07:06 | Day surgery (SDC) | payer BC, SELFPAY ==
[2021-03-26 14:01] VITALS: BMI 51.5
--- NOTE | 2021-03-29 07:37 | ANES.PREANE2 ---
Pre-Anesthetic Assessment Pre-Anesthetic Assessment: Height/Weight: Height 1.63 m Weight 136.078 kg Preop Diagnosis: acute appendicitis Proposed Procedure: Operation Date: 03/29/21 08:30 Proposed Procedures p Colonoscopy [id number] D3A.020(Not Applicable) - Ronal Jacobs MD Familial anesthetic complications: Wakes up in panic Was Beta Chele taken within 24 hours: N/A Was Clonidine taken within 24 hours: N/A Last intake: > 8 hrs Social: Social History: No alcohol and No tobacco Exam: Pre-Anes Outpt Exam: alert, oriented x 3, clear to auscultation bilaterally and regular rate & rhythm Airway: Cervical ROM: WNL MP: 1 Dentition: Full CV/HEM: CV/HEM: HTN GI: GI: GERD Metabolic: Metabolic: Morbid obesity Neuropsych: Neuropsych: Neuropathy (feet) Anesthetic Plan: ASA status: 2 Anesthesia: MAC Risk of > 500 ml blood loss (7ml/kg in children): No PFSH Anesthesia PFSH: Medical History Carcinoid, of appendix GERD (gastroesophageal reflux disease) Hypertension Surgical History History of delivery S/P laparoscopic appendectomy (11/13/20) S/P partial hysterectomy Social History Smoking and tobacco status: never smoked Data Anesthesia Cardiac Studies: No Data to Display
[2021-03-29 07:51] VITALS: BP 134/82; PULSE 88; RESP 18; TEMP 36.2; O2SAT 98
[2021-03-29] MEDS: sodium chloride 0.9% 1,000 ML 30 ML IV (08:02)
--- NOTE | 2021-03-29 08:35 | W.PM.OPSFHP ---
Same Day Surgery H&P Indication for Procedure/HPI DATE OF PROCEDURE: March 29, 2021 CHIEF COMPLAINT/INDICATIONFOR SURGICAL PROCEDURE: Colonoscopy PREOP DIAGNOSIS: acute appendicitis PLANNED PROCEDRUE: Operation Date: 03/29/21 08:30 Proposed Procedures p Colonoscopy 51887 D3A.020(Not Applicable) - Ronal Jacobs MD Medications/Allergies* Home Medications Medication Instructions Recorded Confirmed Type lisinopril 20 mg PO DAILY 11/13/20 03/29/21 History omeprazole 40 mg PO DAILY 11/13/20 03/29/21 History Allergies/Adverse Reactions Allergy/AdvReac Type Severity Reaction Status Date / Time hydrocodone Allergy ALGY-Hives Verified 03/29/21 07:50 prednisone Allergy ALGY-Swell Verified 03/29/21 07:50 Lip/Tongue/Throat Current Medications: Generic Name Dose Route Start Last Admin Trade Name Freq PRN Reason Stop Dose Admin Sodium Chloride 1,000 mls @ 30 mls/hr 03/29/21 07:30 03/29/21 08:02 Sodium Chloride 0.9% IV 03/30/21 07:29 30 mls/hr .Q24H DEWAYNE Administration Pertinent History/Comorbid Conditions* Medical History (Updated 11/28/20 @ 16:08 by Ronal Jacobs MD) Carcinoid, of appendix GERD (gastroesophageal reflux disease) Hypertension Surgical History (Updated 11/28/20 @ 16:08 by Ronal Jacobs MD) History of delivery S/P laparoscopic appendectomy (11/13/20) S/P partial hysterectomy Social History Smoking and tobacco status: never smoked Pertinent Exam Findings alert, oriented x 3 and regular rate & rhythm Recommendations Surgery/Procedure today Coding Level of Care Code 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
[2021-03-29 09:19] VITALS: BP 141/90; PULSE 78; RESP 16; TEMP 36.1; O2SAT 96
--- NOTE | 2021-03-29 09:22 | ANE.PACU2 ---
Inpatient post-anesthesia follow up: Airway intact: Yes Vital signs: Temperature 97.1 F Pulse Rate 88 Respiratory Rate 18 Blood Pressure 134/82 Pulse Oximetry 98 Oxygen Delivery Me thod Room Air Oxygen Flow Rate Fraction of Inspir ed Oxygen Hydration adequate: Yes Nausea and vomiting: No Pain level: 1 Mental status: Baseline
[2021-03-29 09:39] VITALS: BP 126/89; PULSE 74; RESP 18; O2SAT 98
== END 2021-03-29 09:55 | disposition home or self-care (01) ==
PROVIDERS: PCP Nurse Practitioner Family; Visit Provider Surgery
PROC: 0DJD8ZZ Inspection of Lower Intestinal Tract, Via Natural or Artificial Opening Endoscopic (ICD-10-PCS; CPT 45378; principal; 2021-03-29 08:30)
DX: Z12.11 Encounter for screening for malignant neoplasm of colon (principal); D12.3 Benign neoplasm of transverse colon; Z08 Encounter for follow-up examination after completed treatment for malignant neoplasm; Z85.038 Personal history of other malignant neoplasm of large intestine; D3A.020 Benign carcinoid tumor of the appendix; K64.8 Other hemorrhoids; I10 Essential (primary) hypertension; E66.01 Morbid (severe) obesity due to excess calories; Z68.43 Body mass index [BMI] 50.0-59.9, adult
CPT/HCPCS: 45380; 45385; 88305; 96360; J2704; J7030

== ENCOUNTER 2021-06-24 02:48 | Emergency (ER) | payer BC, SELFPAY ==
[2021-06-24 03:01] VITALS: BP 156/88; PULSE 113; RESP 16; TEMP 36.9; O2SAT 99; BMI 51.5
--- NOTE | 2021-06-24 05:02 | W.ED.ABDPA2 ---
HPI - Abdominal Pain General: Chief Complaint: Abdominal Pain Stated Complaint: Abd pain Time Seen by Provider: 06/24/21 03:26 Source: patient History of Present Illness: 36-year-old female presenting with epigastric pain radiating into her back. She notes it started a few hours ago. She she has vomited 3 or 4 times she believes. No fever. She had some diarrhea the day prior, but not since. She has had multiple belly surgeries including 3 C-sections and an appendectomy. MD elicited complaint: abdominal pain Pertinent past history: other Onset (ago): hour(s) Pain Consistency: constant Location: Epigastric Quality: stabbing and aching Radiation: back Migration to: no migration Exacerbating factors: vomiting and movement Relieving factors: nothing Associated Symptoms: Reports change in bowel habits, diarrhea and vomiting; Denies chills, coffee ground emesis, fever(s), hematochezia and hematemesis Review of Systems Const: Denies: fever(s) or chills Eyes: Denies: change in vision ENMT: Denies: throat pain Card: Denies: chest pain Resp: Denies: dyspnea, productive cough or non-productive cough GI: Reports: vomiting, diarrhea and change in bowel habits; Denies: hematemesis, coffee ground emesis or hematochezia Musc: Reports: back pain PFSH ED PFSH: Medical History Carcinoid, of appendix GERD (gastroesophageal reflux disease) Hypertension Surgical History History of delivery S/P laparoscopic appendectomy (11/13/20) S/P partial hysterectomy Status post colonoscopy (03/29/21) Social History Smoking and tobacco status: never smoked Physical Exam Const: GENERAL APPEARANCE: cooperative and ill appearing (Mildly); not comfortable NUTRITIONAL APPEARANCE: obese ORIENTATION/CONSCIOUSNESS: Yes awake, Yes oriented to person, Yes oriented to place and Yes oriented to time HENMT: COMMON NORMALS: normocephalic HEAD & SCALP: normocephalic FACE & SINUS: normal facial exam Eye: COMMON NORMALS: Equal, round and reactive pupils present and EOMs intact bilaterally PUPIL: Yes Equal, round and reactive pupils present Chest: COMMONS NORMALS: normal inspection of the chest Resp: COMMON NORMALS: normal respiratory effort, No use of accessory muscles and clear to auscultation bilaterally AUSCULTATION: clear to auscultation bilaterally Cardio: COMMON NORMALS: regular rate and regular rhythm RATE: regular rate RHYTHM: regular rhythm GI: COMMON NORMALS: Soft to palpation PALPATION: Yes Soft to palpation, Yes Tenderness to palpation present (GI) (Epigastric) and No Guarding due to palpation present (GI) Extremity: COMMON NORMALS: normal to inspection Neuro: MILLY COMA SCALE: document GCS findings [place] coma scale eye opening: Spontaneous Milly coma scale verbal response: Orientated Milly coma scale motor response: Obey commands [place] coma scale total score: 15 SENSORIUM/ORIENTATION: Yes oriented to person, Yes oriented to place and Yes oriented to time Skin: COMMON NORMALS: no rashes or lesions noted GENERAL SKIN EXAM: no rashes or lesions noted Course Vital Signs: Vital signs: Vital Signs Temperature 98.4 F 06/24/21 03:01 Pulse Rate 113 H 06/24/21 03:01 Respiratory Rate 16 06/24/21 03:01 Blood Pressure 156/88 06/24/21 03:01 Pulse Oximetry 99 06/24/21 03:01 MDM - Abdominal Pain Medical Decision Making 36-year-old patient with history of multiple belly surgeries. She presents with epigastric pain. There was some difficulty getting the IV, with multiple sticks. Patient is declining the IV at this point, because her pain is improving. In fact, it is almost resolved. CT had been ordered, which will be canceled. The patient would like to go home, and return to the ER or urgent care if her pain worsens again. She is given a GI cocktail here. Discharge Plan Discharge Patient Disposition: Home Clinical Impression: Abdominal pain, epigastric Condition: Stable Prescriptions: No Action cephalexin 500 mg capsule 500 mg PO BID 7 Days Qty: 14 1RF omeprazole 20 mg Capsule,Delayed Release(Dr/Ec) 40 mg PO DAILY 0RF lisinopril 20 mg Tablet 20 mg PO DAILY 0RF Discharge Orders: Discharge ED (Routine); Ordered 06/24/21 Ordered By: Gab Conde Referrals: Sariah Hoff [Primary Care Provider] - 1-3 days Patient Instructions: Abdominal Pain (ED) Activity Restrictions/Additional Instructions: Return for return of or worsening pain, fever greater than 100, vomiting liquids or medications, any other concerning symptoms. Coding Level of Care Code ED Verifying Specialist for Chg Fwd Exam Comprehensive
[2021-06-24] MEDS: lidocaine 2% viscous 15 ML, aluminum-mag hydrox-simethicon 30 ML, sucralfate oral liq 1 GM PO (05:11)
== END 2021-06-24 05:16 | disposition home or self-care (01) ==
PROVIDERS: Emergency Provider Emergency Medicine; PCP Nurse Practitioner Family
DX: R10.13 Epigastric pain (principal); I10 Essential (primary) hypertension
CPT/HCPCS: 99283

== ENCOUNTER → 2021-06-27 10:29 | Outpatient (BNVA) | payer BC, SELFPAY | PROVIDERS: Visit Provider Family Medicine | DX: Z76.89 Persons encountering health services in other specified circumstances (principal); G62.9 Polyneuropathy, unspecified; R63.5 Abnormal weight gain; I10 Essential (primary) hypertension; K21.9 Gastro-esophageal reflux disease without esophagitis | CPT/HCPCS: 80053; 80061; 83036; 84439; 84443; 85025; 85651 ==

== ENCOUNTER 2021-08-16 02:29 | Emergency (ER) | payer BC, MEDICAID, SELFPAY ==
[2021-08-16] VITALS (7 sets, daily range): BP systolic 91–189; BP diastolic 51–117; PULSE 74–106; RESP 16–22; TEMP 36.7; O2SAT 98–100; BMI 51.5
--- NOTE | 2021-08-16 02:36 | ED_ITS ---
Documented by User: Chandler Goyal MD 08/21/21 04:46 HPI - Abdominal Pain General: Chief Complaint: Abdominal Pain Stated Complaint: abd pain Time Seen by Provider: 08/16/21 02:35 History of Present Illness: Ms. Baron is a 36-year-old lady with history of hypertension and GERD presenting to the emergency department due to abdominal pain. She reports history of similar approximately 2 or 3 times per week however has not had clear explanation. Approximately 1 hour prior to arrival she woke up with severe epigastric abdominal pain with radiation through the back. She has had associated nausea vomiting. She denies specific known provoking factors. Course has persisted. Intensity is severe. No other specific changes in health, exacerbating, or alleviating factors identified. Onset (ago): hour(s) Pain Consistency: constant Severity: severe Quality: stabbing Exacerbating factors: nothing Relieving factors: nothing Review of Systems General: Reports: 10 or more systems reviewed and unremarkable except in HPI and below PFSH ED PFSH: Medical History Carcinoid, of appendix GERD (gastroesophageal reflux disease) Hypertension Surgical History History of delivery S/P laparoscopic appendectomy (11/13/20) S/P partial hysterectomy Status post colonoscopy (03/29/21) Social History Smoking and tobacco status: never smoked Alcohol intake: never Physical Exam Const: COMMON NORMALS: alert GENERAL APPEARANCE: cooperative and well developed HENMT: COMMON NORMALS: normocephalic and atraumatic HEAD & SCALP: normocephalic and atraumatic Eye: COMMON NORMALS: conjunctivae normal CONJUNCTIVA: Yes conjunctivae normal SCLERA: sclerae normal Neck/C-Spine: COMMON NORMALS: supple GENERAL: Yes trachea midline Resp: COMMON NORMALS: clear to auscultation bilaterally EFFORT & INSPECTION: Yes able to speak in complete sentences AUSCULTATION: clear to auscultation bilaterally Cardio: COMMON NORMALS: regular rate and regular rhythm RATE: regular rate RHYTHM: regular rhythm GI: COMMON NORMALS: Soft to palpation PALPATION: Yes Soft to palpation, Yes Tenderness to palpation present (GI), No Guarding due to palpation present (GI) and No Rigid due to palpation Extremity: GENERAL: Yes normal exam except as noted and No edema Neuro: COMMON NORMALS: moves all extremities SENSORIUM/ORIENTATION: Yes alert and No Orientation impaired Psych: COMMON NORMALS: mental status grossly normal and Normal thought process present THOUGHT PROCESS: Normal thought process present Course ED course: - Patient was seen and evaluated by me at bedside - Patient placed on cardiac monitors, IV access obtained - Initial evaluation notable for exam as above - Labs and xrays personally interpreted by me -Symptom treatment ordered - Labs notable for no leukocytosis, normal hemoglobin. Metabolic panel with perhaps mild evidence of dehydration, lactate is elevated however overall clinical picture inconsistent with sepsis. Urinalysis not concerning for urinary tract infection. -Imaging pending at time of patient care handoff. -Patient care handed off to morning ED physician Dr. Harris pending completion of ED evaluation. Vital Signs: Vital signs: Vital Signs Temperature 98.1 F 08/16/21 02:35 Pulse Rate 78 08/16/21 06:30 Respiratory Rate 16 08/16/21 06:30 Blood Pressure 91/51 08/16/21 06:30 Pulse Oximetry 98 08/16/21 06:16 MDM - Abdominal Pain Medical Decision Making 36-year-old lady presenting with abdominal pain. Laboratory studies without obvious etiology identified. Handed off to Dr. Harris pending completion of ED evaluation including imaging studies Labs and imaging reviewed. I do suspect biliary colic and cholecystitis are driving her problem. At this point would recommend discharge home with very guarded bland diet can use hydrocodone and antiemetics as needed. We will make arrangements for near-term follow-up with surgery and also schedule outpatient gallbladder ultrasound. Discussed at length with patient. Medical Records I reviewed the patient's medical records. Lab Data I reviewed the patient's lab results. : 08/16/21 03:02 08/16/21 03:02 Labs/Radiology: Radiology Impressions Abdomen/Pelvis CT 08/16/21 03:50 IMPRESSION: Query sludge in the gallbladder with subtle mural thickening of the gallbladder wall. If there is concern for cholecystitis, right upper quadrant ultrasound and/or HIDA scan could further evaluate. Laboratory Results WBC 9.8 10^3/uL (4.0-10.0) 08/16/21 03:02 RBC 4.72 10^6/uL (4.1-5.3) 08/16/21 03:02 Hgb 14.2 g/dL (11.5-15.3) 08/16/21 03:02 Hct 41.7 % (37.0-47.0) 08/16/21 03:02 MCV 88.3 fl (81-99) 08/16/21 03:02 MCH 30.1 pg (28.0-34.0) 08/16/21 03:02 MCHC 34.1 g/dL (30.0-36.0) 08/16/21 03:02 RDW 12.5 % (12.1-15.1) 08/16/21 03:02 Plt Count 279 10^3/cmm (130-400) 08/16/21 03:02 MPV 10.6 fL (7.4-10.4) H 08/16/21 03:02 Neut % (Auto) 49.9 % 08/16/21 03:02 Lymph % (Auto) 40.6 % 08/16/21 03:02 Day % (Auto) 6.2 % 08/16/21 03:02 Eos % (Auto) 2.7 % 08/16/21 03:02 Baso % (Auto) 0.4 % 08/16/21 03:02 Neut # (Auto) 4.87 10^3/uL (1.8-7.7) 08/16/21 03:02 Lymph # (Auto) 4.0 10^3/uL (0.8-4.8) 08/16/21 03:02 Day # (Auto) 0.6 10^3/uL (0.2-0.9) 08/16/21 03:02 Eos # (Auto) 0.3 10^3/uL (0.0-0.8) 08/16/21 03:02 Baso # (Auto) 0.0 10^3/uL (0.0-0.1) 08/16/21 03:02 Nucleated RBC % (auto) 0 % 08/16/21 03:02 Nucleated RBCs # 0.0 /100WBC 08/16/21 03:02 Sodium 135 mmol/L (136-145) L 08/16/21 03:02 Potassium 3.5 mmol/L (3.5-5.1) 08/16/21 03:02 Chloride 98 mmol/L (98-107) 08/16/21 03:02 Carbon Dioxide 25 mmol/L (22-29) 08/16/21 03:02 Anion Gap 15.5 (5-19) 08/16/21 03:02 BUN 12 mg/dL (6-20) 08/16/21 03:02 Creatinine 0.6 mg/dL (0.5-0.9) 08/16/21 03:02 GFR Calculation 111.9 mL/min (90-130) 08/16/21 03:02 Glucose 123 mg/dL (65-115) H 08/16/21 03:02 Calculated Osmolality 281 mOsm/kg (285-295) L 08/16/21 03:02 Lactate 2.5 mmol/L (0.5-2.2) H 08/16/21 03:05 Calcium 8.9 mg/dL (8.5-10.5) 08/16/21 03:02 Total Bilirubin 0.2 mg/dL (0.15-1.2) 08/16/21 03:02 AST 16 U/L (0-32) 08/16/21 03:02 ALT 24 U/L (0-33) 08/16/21 03:02 Alkaline Phosphatase 53 IU/L (35-105) 08/16/21 03:02 Total Protein 7.9 g/dL (6.6-8.7) 08/16/21 03:02 Albumin 4.6 g/dL (3.5-5.2) 08/16/21 03:02 Globulin 3.3 g/dL (1.3-4.6) 08/16/21 03:02 Lipase 33 U/L (13-60) 08/16/21 03:02 HCG, Qual Negative (Negative) 08/16/21 04:02 Urine Color Yellow (Yellow) 08/16/21 04:02 Urine Appearance Clear (CLEAR) 08/16/21 04:02 Urine pH 5 (5-7) 08/16/21 04:02 Ur Specific [place] 1.025 (1.005-1.030) 08/16/21 04:02 Urine Protein Trace (Negative) 08/16/21 04:02 Urine Glucose (UA) Norm (Normal) 08/16/21 04:02 Urine Ketones Negative (Negative) 08/16/21 04:02 Urine Blood Neg (Negative) 08/16/21 04:02 Urine Nitrate Negative (Negative) 08/16/21 04:02 Urine Bilirubin Neg (Negative) 08/16/21 04:02 Urine Urobilinogen Norm mg/dL (Negative) 08/16/21 04:02 Ur Leukocyte Esterase Negative (Negative) 08/16/21 04:02 Urine RBC 0-4 /hpf (0-2) H 08/16/21 04:02 Urine WBC 0-4 /hpf (0-5) H 08/16/21 04:02 Ur Squamous Epith Cells 5-10 /hpf (0-5) H 08/16/21 04:02 Amorphous Sediment Not Reportable 08/16/21 04:02 Urine Bacteria 1+ /hpf (NONE) H 08/16/21 04:02 Urine Mucus 1+ /hpf 08/16/21 04:02 Discharge Plan Discharge Patient Disposition: Home Clinical Impression: Biliary colic, Cholelithiases Condition: Stable Prescriptions: New ondansetron HCl 4 mg tablet 4 mg PO Q6H PRN (Reason: nausea and vomiting) Qty: 20 0RF Percocet 5-325 mg tablet 1 tab PO Q6H PRN (Reason: pain) Qty: 20 0RF No Action pantoprazole [Protonix] 40 mg tablet,delayed release (DR/EC) 40 mg PO BID Qty: 60 2RF doxycycline hyclate 100 mg tablet 100 mg PO BID 7 Days Qty: 14 0RF lisinopril 20 mg Tablet 20 mg PO DAILY 0RF Discharge Orders: Discharge ED (Routine); Ordered 08/16/21 Ordered By: Thanh Harris Patient Instructions: Abdominal Pain (ED), Opioid Safety Sign Out Sign Out Data: Patient Sign Out occurred on 08/16/21 at 06:15. Patient's care was discussed, and care was transferred from to Thanh Harris DO. Coding Level of Care Code ED Web Site Specialist for Chg Fwd Exam Comprehensive Documented by User: Thanh Harris DO 08/16/21 08:25 HPI - Abdominal Pain General: Chief Complaint: Abdominal Pain Stated Complaint: abd pain Time Seen by Provider: 08/16/21 02:35 PFSH ED PFSH: Medical History Carcinoid, of appendix GERD (gastroesophageal reflux disease) Hypertension Surgical History History of delivery S/P laparoscopic appendectomy (11/13/20) S/P partial hysterectomy Status post colonoscopy (03/29/21) Social History Smoking and tobacco status: never smoked Alcohol intake: never Course Vital Signs: Vital signs: Vital Signs Temperature 98.1 F 08/16/21 02:35 Pulse Rate 78 08/16/21 06:30 Respiratory Rate 16 08/16/21 06:30 Blood Pressure 91/51 08/16/21 06:30 Pulse Oximetry 98 08/16/21 06:16 MDM - Abdominal Pain Medical Decision Making Labs and imaging reviewed. I do suspect biliary colic and cholecystitis are driving her problem. At this point would recommend discharge home with very guarded bland diet can use hydrocodone and antiemetics as needed. We will make arrangements for near-term follow-up with surgery and also schedule outpatient gallbladder ultrasound. Discussed at length with patient. Lab Data : 08/16/21 03:02 08/16/21 03:02 Labs/Radiology: Radiology Impressions Abdomen/Pelvis CT 08/16/21 03:50
[2021-08-16 03:07] LABS: Basophils % 0.4 %; Eosinophils # 0.3 10^3/uL (0.0-0.8); Eosinophils % 2.7 %; Hematocrit 41.7 % (37.0-47.0); Hemoglobin 14.2 g/dL (11.5-15.3); Lymphocytes % 40.6 %; Mean Corpuscular HGB Conc 34.1 g/dL (30.0-36.0); Mean Corpuscular Hemoglobin 30.1 pg (28.0-34.0); Mean Corpuscular Volume 88.3 fl (81-99); Mean Platelet Volume 10.6 fL (7.4-10.4); Monocytes # 0.6 10^3/uL (0.2-0.9); Monocytes % 6.2 %; Neutrophils # 4.87 10^3/uL (1.8-7.7); Neutrophils % 49.9 %; Nucleated Red Blood Cells % 0 %; Platelet Count 279 10^3/cmm (130-400); Red Blood Count 4.72 10^6/uL (4.1-5.3); Red Cell Distribution Width 12.5 % (12.1-15.1); White Blood Count 9.8 10^3/uL (4.0-10.0)
[2021-08-16] MEDS: morphine 4 mg/mL SDV 1 mL IVP (03:08)
[2021-08-16] MEDS: lactated ringers 1,000 ML 999 ML IV (03:09)
[2021-08-16] MEDS: ondansetron 2 mg/ML SDV 2 mL 4 MG IVP (03:09)
[2021-08-16] MEDS: lidocaine 2% viscous 15 ML, aluminum-mag hydrox-simethicon 30 ML, sucralfate oral liq 1 GM PO (03:15)
[2021-08-16] MEDS: pantoprazole 40 mg SDV 80 MG IVP (03:15)
[2021-08-16 03:29] LABS: Lactate (Lactic Acid level) 2.5 mmol/L (0.5-2.2)
[2021-08-16 03:30] LABS: Alanine Aminotransferase 24 U/L (0-33); Albumin Level 4.6 g/dL (3.5-5.2); Alkaline Phosphatase 53 IU/L (35-105); Anion Gap 15.5 (5-19); Aspartate Amino Transferase 16 U/L (0-32); Blood Urea Nitrogen 12 mg/dL (6-20); Calcium 8.9 mg/dL (8.5-10.5); Carbon Dioxide 25 mmol/L (22-29); Chloride 98 mmol/L (98-107); Globulin 3.3 g/dL (1.3-4.6); Glomerular Filtration Rate 111.9 mL/min (90-130); Glucose 123 mg/dL (65-115); Lipase 33 U/L (13-60); Osmolality Calculated 281 mOsm/kg (285-295); Potassium 3.5 mmol/L (3.5-5.1); Sodium 135 mmol/L (136-145); Total Bilirubin 0.2 mg/dL (0.15-1.2); Total Protein 7.9 g/dL (6.6-8.7)
--- NOTE | 2021-08-16 03:50 | CTR_ITS ---
PROCEDURE INFORMATION: Exam: CT Abdomen And Pelvis With Contrast Exam date and time: 08/16/2021 4:32 AM Age: 36 years old Clinical indication: Nausea and vomiting; Abdominal pain; Prior surgery; Surgery type: Appy. Csection. Partial hysto. Patient HX: C/O epigastric pain with n/v. Appendectomy due to carcinoid. ; Additional info: Epigastric pain, n/v TECHNIQUE: Imaging protocol: Computed tomography of the abdomen and pelvis with contrast. Radiation optimization: All CT scans at this facility use at least one of these dose optimization techniques: automated exposure control; mA and/or kV adjustment per patient size (includes targeted exams where dose is matched to clinical indication); or iterative reconstruction. Contrast material: OMNI 300; Contrast volume: 95 ml; Contrast route: INTRAVENOUS (IV); COMPARISON: CT abdomen pelvis w con* [id number] 11/12/2020 10:23 PM RADIATION DOSE METRICS: Total DLP (mGy-cm): 1715.94 FINDINGS: Liver: Focal fatty infiltration along the falciform ligament. Gallbladder and bile ducts: Query subtle mural thickening of the gallbladder wall. There may be biliary sludge in the lumen. No biliary dilation. Pancreas: Normal. No ductal dilation. Spleen: Normal. No splenomegaly. Adrenal glands: Normal. No mass. Kidneys and ureters: Normal. No hydronephrosis. Stomach and bowel: Unremarkable. No obstruction. No mucosal thickening. Appendix: Appendectomy. Intraperitoneal space: Unremarkable. No free air. No significant fluid collection. Vasculature: Unremarkable. No abdominal aortic aneurysm. Lymph nodes: Unremarkable. No enlarged lymph nodes. Urinary bladder: Unremarkable as visualized. Reproductive: Simple appearing cyst in the right ovary measures 2.8 cm. Bones/joints: Unremarkable. No acute fracture. Soft tissues: Unremarkable. CT/CT abdomen pelvis w con* [id number] IMPRESSION: Query sludge in the gallbladder with subtle mural thickening of the gallbladder wall. If there is concern for cholecystitis, right upper quadrant ultrasound and/or HIDA scan could further evaluate.
[2021-08-16 04:11] LABS: HCG Qualitative Urine. Negative (Negative)
[2021-08-16] MEDS: diphenhydrAMINE 50 mg/mL SDV 1mL 25 MG IVP (04:26)
[2021-08-16] MEDS: metoclopramide 5 mg/mL SDV 2 mL 10 MG IVP (04:27)
[2021-08-16] MEDS: iohexol 300 mg/mL 100 mL Btl IV (04:30)
[2021-08-16 04:45] LABS: Add Urine Microscopic? YES; Bilirubin Urine Neg (Negative); Blood Urine Neg (Negative); Glucose Urine UA Norm (Normal); Ketones Urine Negative (Negative); Leukocyte Esterase Urine Negative (Negative); Nitrate Urine Negative (Negative); Protein Urine Trace (Negative); Specific Gravity, Urine 1.025 (1.005-1.030); Urine Appearance Clear (CLEAR); Urine Color Yellow (Yellow); Urobilinogen Urine Norm (Negative); pH Urine 5 (5-7)
[2021-08-16 04:46] LABS: Add Urine Culture? No; Bacteria Urine 1+ /hpf; Mucus Urine 1+ /hpf; RBC Urine 0-4 /hpf (0-2); WBC Urine 0-4 /hpf (0-5)
== END 2021-08-16 08:17 | disposition home or self-care (01) ==
PROVIDERS: Emergency Medicine; Emergency Provider Family Medicine
DX: K80.20 Calculus of gallbladder without cholecystitis without obstruction (principal)
CPT/HCPCS: 74177; 80053; 81001; 81025; 83605; 83690; 85025; 96374; 96375; 99284; C9113; J1200; J2270; J2405; J2765; Q9967

== ENCOUNTER 2021-08-24 07:29 | Day surgery (SDC) | payer BC, SELFPAY ==
[2021-08-21 13:16] VITALS: BMI 51.5
[2021-08-24 07:41] VITALS: BP 136/96; PULSE 78; RESP 18; TEMP 36.1; O2SAT 99
[2021-08-24] MEDS: sodium chloride 0.9% 1,000 ML 30 ML IV (07:56)
--- NOTE | 2021-08-24 09:13 | ANES.PREANE2 ---
Pre-Anesthetic Assessment Height/Weight: Height 1.63 m Weight 136.078 kg Temp Pulse Resp BP Pulse Ox 97.0 F L 78 18 136/96 99 08/24/21 07:41 08/24/21 07:41 08/24/21 07:41 08/24/21 07:41 08/24/21 07:41 Preop Diagnosis: acute appendicitis Operation Date: 08/24/21 09:00 Proposed Procedures p EGD 71262/r10.13(Not Applicable) - Peter Price DO Familial anesthetic complications: None Was Beta Chele taken within 24 hours: N/A Was Clonidine taken within 24 hours: N/A Last intake: Intake Last Liquid Date 08/23/21 Last Liquid Time 23:00 Last Solid Date 08/23/21 Last Solid Time 18:30 Social No alcohol and No tobacco Exam alert, oriented x 3, clear to auscultation bilaterally and regular rate & rhythm Airway Submandibular: within normal limits Cervical ROM: within normal limits Mallampati: Class III Dentition: full History/ROS No significant complaints Pulmonary None reported Denies AMY CV/HEM Hypertension METS > 4 None reported Hepatic None reported GI Gastroesophageal Reflux Disease Hx of carcinoid of appendix Epigastric pain Metabolic Morbid Obesity Denies DM Musc/skel Lower Back Pain Neuropsych Neuropathy (radicular lumbar pain, peripheral neuropathy ) Anesthetic Plan ASA status: 3 (36 year old morbidly obese female (BMI > 50) with hx of HTN, GERD, carcinoid of appendix, and peripheral neuropathy ) Anesthesia: Anesthesia Evaluation, General and MAC Other: I discussed with the patient risks, goals, and benefits of MAC and general anesthesia. We discussed spectrum of MAC anesthesia including conversion to general as well as possibility of recall of intraoperative stimuli including discomfort/pain. Patient agrees to proceed with MAC. Risk of > 500 ml blood loss (7ml/kg in children): No Medications/Allergies Home Medications Medication Instructions Recorded Confirmed Last Taken Type pantoprazole 40 mg tablet,delayed 40 mg PO BID #60 tab 07/11/21 08/24/21 Unknown Rx release (Protonix) ondansetron HCl 4 mg tablet 4 mg PO Q6H PRN #20 tab 08/16/21 08/24/21 Unknown Rx oxycodone-acetaminophen 5 mg-325 1 tab PO Q6H PRN #20 tab 08/16/21 08/24/21 Unknown Rx mg tablet (Percocet) lisinopril 20 mg tablet 20 mg PO DAILY #90 tab 08/21/21 08/24/21 Unknown Rx Allergies Allergy/AdvReac Type Severity Reaction Status Date / Time hydrocodone Allergy ALGY-Hives Verified 08/24/21 07:40 prednisone Allergy ALGY-Swell Verified 08/24/21 07:40 Lip/Tongue/Throat Current Medications Generic Name Dose Route Start Last Admin Trade Name Freq PRN Reason Stop Dose Admin Sodium Chloride 1,000 mls @ 30 mls/hr 08/24/21 07:45 08/24/21 07:56 Sodium Chloride 0.9% IV 08/25/21 07:44 30 mls/hr .Q24H DEWAYNE Administration PFSH Anesthesia Medical History Carcinoid, of appendix GERD (gastroesophageal reflux disease) Hypertension Surgical History History of delivery S/P laparoscopic appendectomy (11/13/20) S/P partial hysterectomy Status post colonoscopy (03/29/21) Social History Smoking and tobacco status: never smoked Alcohol intake: never Data Anesthesia Cardiac Studies: No Data to Display
--- NOTE | 2021-08-24 09:38 | W.PM.OPSUD ---
Surgery/Procedure H&P Update DATE OF PROCEDURE: August 24, 2021 DATE H&P PERFORMED: 08/16/21 CHANGES TO PREVIOUS DOCUMENTATION: none PREOP DIAGNOSIS: acute appendicitis PLANNED PROCEDURE: Operation Date: 08/24/21 09:00 Proposed Procedures p EGD 40830/r10.13(Not Applicable) - Peter Price DO
[2021-08-24 10:42] VITALS: BP 141/97; PULSE 85; RESP 12; TEMP 36.2; O2SAT 94
[2021-08-24 10:52] VITALS: BP 136/74; PULSE 73; RESP 16; O2SAT 95
[2021-08-24 10:59] VITALS: BP 111/72; PULSE 70; RESP 16; O2SAT 100
--- NOTE | 2021-08-24 14:45 | ANE.PACU2 ---
Inpatient post-anesthesia follow up: Airway intact: Yes Vital signs: Temperature 97.1 F Pulse Rate 70 Respiratory Rate 16 Blood Pressure 111/72 Pulse Oximetry 100 Oxygen Delivery Me thod Room Air Oxygen Flow Rate 5 Fraction of Inspir ed Oxygen Hydration adequate: Yes Nausea and vomiting: No Pain level: 1 Mental status: Baseline
== END 2021-08-24 11:15 | disposition home or self-care (01) ==
PROVIDERS: PCP Neurological Surgery; Visit Provider Surgery
PROC: 0DJ08ZZ Inspection of Upper Intestinal Tract, Via Natural or Artificial Opening Endoscopic (ICD-10-PCS; CPT 43235; principal; 2021-08-24 09:00)
DX: R10.13 Epigastric pain (principal); K29.70 Gastritis, unspecified, without bleeding; K21.9 Gastro-esophageal reflux disease without esophagitis; E11.42 Type 2 diabetes mellitus with diabetic polyneuropathy; E66.01 Morbid (severe) obesity due to excess calories; Z68.43 Body mass index [BMI] 50.0-59.9, adult; I10 Essential (primary) hypertension
CPT/HCPCS: 43239; 88305; J2704; J7030

== ENCOUNTER 2021-08-27 02:19 | Observation (INO) | payer BC, SELFPAY ==
[2021-08-27] VITALS (27 sets, daily range): BP systolic 107–191; BP diastolic 65–117; PULSE 72–114; RESP 14–22; TEMP 36.1–36.9; O2SAT 90–100; BMI 51.2; BMI 55.7
--- NOTE | 2021-08-27 02:37 | USR_ITS ---
PROCEDURE INFORMATION: Exam: US Abdomen, Limited; Right Upper Quadrant Exam date and time: 08/27/2021 2:53 AM Age: 36 years old Clinical indication: Abdominal pain; Acute; Additional info: Epigastric pain vomiting TECHNIQUE: Imaging protocol: US abdomen. Real time ultrasound with image documentation. Limited exam focused on the right upper quadrant. COMPARISON: CT abdomen pelvis w con* [id number] 08/16/2021 4:32 AM FINDINGS: Liver: Normal. No masses. Gallbladder: There is a hyperechoic focus exhibiting acoustic shadowing seen within the gallbladder neck, findings that may represent a non mobile gallstone. There is mild gallbladder wall thickening measuring 2.9 mm. Biliary ducts: Normal. No stones. No dilation. Pancreas: Visualized pancreas is unremarkable. Right kidney: Normal. No mass. No hydronephrosis. US/US gall bladder [id number] IMPRESSION: Gallstone with mild gallbladder wall thickening, findings that may represent gallstone cholecystitis.
[2021-08-27 02:52] LABS: Basophils # 0.1 10^3/uL (0.0-0.1); Basophils % 0.4 %; Eosinophils # 0.3 10^3/uL (0.0-0.8); Eosinophils % 2.6 %; Hematocrit 38.6 % (37.0-47.0); Hemoglobin 12.8 g/dL (11.5-15.3); Lymphocytes # 2.5 10^3/uL (0.8-4.8); Lymphocytes % 21.2 %; Mean Corpuscular HGB Conc 33.2 g/dL (30.0-36.0); Mean Corpuscular Hemoglobin 30.2 pg (28.0-34.0); Mean Platelet Volume 10.6 fL (7.4-10.4); Monocytes # 0.8 10^3/uL (0.2-0.9); Neutrophils # 7.99 10^3/uL (1.8-7.7); Neutrophils % 68.6 %; Nucleated Red Blood Cells % 0 %; Platelet Count 259 10^3/cmm (130-400); Red Blood Count 4.24 10^6/uL (4.1-5.3); Red Cell Distribution Width 12.7 % (12.1-15.1); White Blood Count 11.6 10^3/uL (4.0-10.0)
[2021-08-27] MEDS: sodium chloride 0.9% 1,000 ML 999 ML IV (03:06)
[2021-08-27] MEDS: HYDROmorphone 1 mg/mL INJ 1 mL IVP ×2 (03:06→04:45)
[2021-08-27] MEDS: ondansetron 2 mg/ML SDV 2 mL 4 MG IVP (03:06)
[2021-08-27 03:16] LABS: HCG, Serum Qual Negative (Negative)
[2021-08-27 03:18] LABS: Alanine Aminotransferase 22 U/L (0-33); Albumin Level 4.1 g/dL (3.5-5.2); Alkaline Phosphatase 47 IU/L (35-105); Anion Gap 17.8 (5-19); Aspartate Amino Transferase 17 U/L (0-32); Blood Urea Nitrogen 13 mg/dL (6-20); C Reactive Protein 65.8 mg/L (0.0-4.9); Calcium 9.1 mg/dL (8.5-10.5); Carbon Dioxide 21 mmol/L (22-29); Chloride 99 mmol/L (98-107); Creatinine Clr Calc Pharmacy 149.7804; Glomerular Filtration Rate 93.6 mL/min (90-130); Glucose 121 mg/dL (65-115); Lipase 20 U/L (13-60); Osmolality Calculated 279 mOsm/kg (285-295); Potassium 3.8 mmol/L (3.5-5.1); Sodium 134 mmol/L (136-145); Total Bilirubin 0.6 mg/dL (0.15-1.2); Total Protein 8.1 g/dL (6.6-8.7)
--- NOTE | 2021-08-27 03:20 | ED_ITS ---
HPI - Abdominal Pain General: Chief Complaint: Abdominal Pain Stated Complaint: abd pain/ PT states gallbladder Time Seen by Provider: 08/27/21 02:33 Source: patient History of Present Illness: 36-year-old female with a history of biliary colic. She has had work-up to include CT scan and endoscopy in the recent past. Her endoscopy was 3 days ago. She presents with onset of epigastric and right upper quadrant pain radiating into her back starting last evening. She has vomited multiple times. Pain is intense. She has some chronic diarrhea problems with no change in that. MD elicited complaint: abdominal pain Pertinent past history: other Onset (ago): hour(s) Pain Consistency: constant Location: RUQ Quality: stabbing Radiation: bilateral flank and back Exacerbating factors: vomiting Relieving factors: nothing Associated Symptoms: Reports chills, diarrhea, loose stools, nausea and vomiting; Denies dyspepsia, fever(s), heartburn and hematemesis Review of Systems Const: Reports: chills; Denies: fever(s) ENMT: Denies: throat pain Card: Denies: chest pain or palpitations Resp: Denies: dyspnea, productive cough or non-productive cough GI: Reports: abdominal pain, nausea, vomiting and diarrhea; Denies: hematemesis or heartburn : Reports: flank pain Musc: Reports: back pain Neuro: Reports: headache(s) PFS ED PFSH: Medical History Carcinoid, of appendix GERD (gastroesophageal reflux disease) Hypertension Surgical History History of delivery S/P laparoscopic appendectomy (11/13/20) S/P partial hysterectomy Status post colonoscopy (03/29/21) Social History Smoking and tobacco status: never smoked Alcohol intake: never Physical Exam Const: GENERAL APPEARANCE: cooperative, in distress and ill appearing HENMT: COMMON NORMALS: normocephalic, atraumatic and Normal external nose present HEAD & SCALP: normocephalic and atraumatic FACE & SINUS: normal facial exam and face symmetric NOSE: Normal external nose present THROAT: posterior oropharynx normal Eye: COMMON NORMALS: Equal, round and reactive pupils present and EOMs intact bilaterally PUPIL: Yes Equal, round and reactive pupils present Neck/C-Spine: COMMON NORMALS: full ROM GENERAL: Yes trachea midline Chest: CHEST: Yes Symmetrical chest wall rise Resp: COMMON NORMALS: normal respiratory effort, No use of accessory muscles and clear to auscultation bilaterally AUSCULTATION: clear to auscultation bilaterally Cardio: COMMON NORMALS: regular rate and regular rhythm RATE: regular rate RHYTHM: regular rhythm GI: COMMON NORMALS: Soft to palpation PALPATION: Yes Soft to palpation and Yes Tenderness to palpation present (GI) (Epigastric) Details: RUQ Back/Pelvis: COMMON NORMALS: thoracic and lumbar spine normal to inspection Extremity: COMMON NORMALS: no pedal edema Neuro: MILLY COMA SCALE: document GCS findings Milly coma scale eye opening: Spontaneous Milly coma scale verbal response: Orientated [place] coma scale motor response: Obey commands Milly coma scale total score: 15 Course Consultations: Consultation #Phyllis: Reynaldo Time: 04:07 Vital Signs: Vital signs: Vital Signs Temperature 98.3 F 08/27/21 02:28 Pulse Rate 103 H 08/27/21 02:28 Respiratory Rate 16 08/27/21 03:06 Blood Pressure 146/117 08/27/21 02:28 Pulse Oximetry 98 08/27/21 03:06 MDM - Abdominal Pain Medical Decision Making Afebrile. White blood cell count is 11.6. BMP is normal. Liver enzymes are normal. Ultrasound shows gallbladder wall thickening with a stone in the neck, consistent with acute cholecystitis. No common bile duct dilatation. She will get Zosyn in the ER, and every 6 hours. Spoke with surgery, they are willing to admit for likely cholecystectomy later today. Lab Data : 08/27/21 02:49 08/27/21 02:49 Labs/Radiology: Radiology Impressions Gallbladder Ultrasound 08/27/21 02:37 IMPRESSION: Gallstone with mild gallbladder wall thickening, findings that may represent gallstone cholecystitis. Laboratory Results WBC 11.6 10^3/uL (4.0-10.0) H 08/27/21 02:49 RBC 4.24 10^6/uL (4.1-5.3) 08/27/21 02:49 Hgb 12.8 g/dL (11.5-15.3) 08/27/21 02:49 Hct 38.6 % (37.0-47.0) 08/27/21 02:49 MCV 91.0 fl (81-99) 08/27/21 02:49 MCH 30.2 pg (28.0-34.0) 08/27/21 02:49 MCHC 33.2 g/dL (30.0-36.0) 08/27/21 02:49 RDW 12.7 % (12.1-15.1) 08/27/21 02:49 Plt Count 259 10^3/cmm (130-400) 08/27/21 02:49 MPV 10.6 fL (7.4-10.4) H 08/27/21 02:49 Neut % (Auto) 68.6 % 08/27/21 02:49 Lymph % (Auto) 21.2 % 08/27/21 02:49 [place] % (Auto) 7.0 % 08/27/21 02:49 Eos % (Auto) 2.6 % 08/27/21 02:49 Baso % (Auto) 0.4 % 08/27/21 02:49 Neut # (Auto) 7.99 10^3/uL (1.8-7.7) H 08/27/21 02:49 Lymph # (Auto) 2.5 10^3/uL (0.8-4.8) 08/27/21 02:49 [place] # (Auto) 0.8 10^3/uL (0.2-0.9) 08/27/21 02:49 Eos # (Auto) 0.3 10^3/uL (0.0-0.8) 08/27/21 02:49 Baso # (Auto) 0.1 10^3/uL (0.0-0.1) 08/27/21 02:49 Nucleated RBC % (auto) 0 % 08/27/21 02:49 Nucleated RBCs # 0.0 /100WBC 08/27/21 02:49 Sodium 134 mmol/L (136-145) L 08/27/21 02:49 Potassium 3.8 mmol/L (3.5-5.1) 08/27/21 02:49 Chloride 99 mmol/L (98-107) 08/27/21 02:49 Carbon Dioxide 21 mmol/L (22-29) L 08/27/21 02:49 Anion Gap 17.8 (5-19) 08/27/21 02:49 BUN 13 mg/dL (6-20) 08/27/21 02:49 Creatinine 0.7 mg/dL (0.5-0.9) 08/27/21 02:49 GFR Calculation 93.6 mL/min (90-130) 08/27/21 02:49 Glucose 121 mg/dL (65-115) H 08/27/21 02:49 Calculated Osmolality 279 mOsm/kg (285-295) L 08/27/21 02:49 Calcium 9.1 mg/dL (8.5-10.5) 08/27/21 02:49 Total Bilirubin 0.6 mg/dL (0.15-1.2) 08/27/21 02:49 AST 17 U/L (0-32) 08/27/21 02:49 ALT 22 U/L (0-33) 08/27/21 02:49 Alkaline Phosphatase 47 IU/L (35-105) 08/27/21 02:49 C-Reactive Protein 65.8 mg/L (0.0-4.9) H 08/27/21 02:49 Total Protein 8.1 g/dL (6.6-8.7) 08/27/21 02:49 Albumin 4.1 g/dL (3.5-5.2) 08/27/21 02:49 Globulin 4.0 g/dL (1.3-4.6) 08/27/21 02:49 Lipase 20 U/L (13-60) 08/27/21 02:49 HCG, Qual Negative (Negative) 08/27/21 02:49 Discharge Plan Discharge Patient Disposition: Placed in Observation Clinical Impression: Acute calculous cholecystitis Coding Level of Care Code ED Medical Support Specialist for Deisy Fwd Exam Comprehensive
[2021-08-27] MEDS: piperacillin-tazobactam 3.375 GM in sodium chloride 0.9% (plus) 50 ML IV ×2 (04:46→10:46)
[2021-08-27] MEDS: pantoprazole 40 mg SDV IVP (05:36)
[2021-08-27] MEDS: lactated ringers 1,000 ML 100 ML IV (05:36)
--- NOTE | 2021-08-27 07:28 | ANES.PREANE2 ---
Pre-Anesthetic Assessment Height/Weight: Height 1.6 m Weight 142.882 kg Temp Pulse Resp BP Pulse Ox 97 F L 77 15 127/65 90 08/27/21 05:01 08/27/21 05:07 08/27/21 05:07 08/27/21 05:07 08/27/21 05:07 Preop Diagnosis: acute appendicitis Operation Date: 08/27/21 09:00 Proposed Procedures p EGD(Not Applicable) - Ronal Jacobs MD s Laparoscopic Cholecystectomy(Not Applicable) - Ronal Jacobs MD Familial anesthetic complications: None Was Beta Chele taken within 24 hours: N/A Was Clonidine taken within 24 hours: N/A Last intake: Intake Last Liquid Date 08/26/21 Last Liquid Time 23:45 Last Solid Date 08/26/21 Last Solid Time 16:00 Social No alcohol and No tobacco Exam alert, oriented x 3, clear to auscultation bilaterally and regular rate & rhythm Airway Submandibular: within normal limits Cervical ROM: within normal limits Mallampati: Class II Dentition: full History/ROS No significant complaints Pulmonary None reported CV/HEM Hypertension None reported Hepatic None reported GI Gastroesophageal Reflux Disease Metabolic Morbid Obesity Gastroesophageal Reflux Disease Hx of carcinoid of appendix Epigastric pain Cholecystitis Musc/skel Lower Back Pain Neuropsych Neuropathy Anesthetic Plan ASA status: 3 (36 year old super morbid obese female with htn and acute cholecystitis with active vomiting. ) Anesthesia: Anesthesia Evaluation and General Other: We discussed risk and benefits of general anesthesia including PONV, sore throat (sometimes severe), corneal abrasion, positioning and peripheral nerve injuries, life threatening allergic reaction, post operative ICU admission requiring prolonged intubation, stroke, heart attack, , and rare incidences of recall. Patient consents to proceed with general anesthesia. Plan pre op metoclopramide, ondansetron, famotidine, promethazine intra op dexamethasone and diphenhydramine. GETA. RSI. OG. Awake extubation. Risk of > 500 ml blood loss (7ml/kg in children): No Medications/Allergies Home Medications Medication Instructions Recorded Confirmed Last Taken Type pantoprazole 40 mg tablet,delayed 40 mg PO BID #60 tab 07/11/21 08/24/21 Unknown Rx release (Protonix) ondansetron HCl 4 mg tablet 4 mg PO Q6H PRN #20 tab 08/16/21 08/24/21 Unknown Rx oxycodone-acetaminophen 5 mg-325 1 tab PO Q6H PRN #20 tab 08/16/21 08/24/21 Unknown Rx mg tablet (Percocet) lisinopril 20 mg tablet 20 mg PO DAILY #90 tab 08/21/21 08/24/21 Unknown Rx Allergies Allergy/AdvReac Type Severity Reaction Status Date / Time hydrocodone Allergy ALGY-Hives Verified 08/24/21 07:40 prednisone Allergy ALGY-Swell Verified 08/24/21 07:40 Lip/Tongue/Throat Current Medications Generic Name Dose Route Start Last Admin Trade Name Freq PRN Reason Stop Dose Admin Lactated Ringer's 1,000 mls @ 100 mls/hr 08/27/21 05:01 08/27/21 05:36 Lactated Ringers IV 100 mls/hr .Q10H DEWAYNE Administration PFSH Anesthesia Medical History Carcinoid, of appendix GERD (gastroesophageal reflux disease) Hypertension Surgical History H/O esophagogastroduodenoscopy History of delivery S/P laparoscopic appendectomy (11/13/20) S/P partial hysterectomy Status post colonoscopy (03/29/21) Social History Smoking and tobacco status: never smoked Alcohol intake: never Data Anesthesia : 08/27/21 02:49 08/27/21 02:49 Short CBC 08/27/21 Range/Units 02:49 WBC 11.6 H (4.0-10.0) 10^3/uL Hgb 12.8 (11.5-15.3) g/dL Hct 38.6 (37.0-47.0) % MCV 91.0 (81-99) fl Plt Count 259 (130-400) 10^3/cmm Neut % (Auto) 68.6 % Neut # (Auto) 7.99 H (1.8-7.7) 10^3/uL BMP 08/27/21 02:49 Sodium 134 L Potassium 3.8 Chloride 99 Carbon Dioxide 21 L BUN 13 Creatinine 0.7 Glucose 121 H Calcium 9.1 Liver Function 08/27/21 Range/Units 02:49 Total Bilirubin 0.6 (0.15-1.2) mg/dL AST 17 (0-32) U/L ALT 22 (0-33) U/L Alkaline Phosphatase 47 (35-105) IU/L Albumin 4.1 (3.5-5.2) g/dL [facility] 08/27/21 02:49 C-Reactive Protein 65.8 H Cardiac Studies: No Data to Display
--- NOTE | 2021-08-27 08:00 | P.HP_ITS ---
Providers/Chief Complaint Admitting Physician: Ronal Jacobs MD Primary Care Provider: Kosta Hart MD Chief Complaint: abd pain/ PT states gallbladder History of Present Illness Shani Baron is a 36 year old female who has been dealing with upper abdominal pain since May 2021. Patient had an EGD on 08/24/2021 which showed mild gastritis and she is currently on Protonix. Patient presented to the ER last week as well as last night with complaints of severe abdominal pain mainly in the epigastric right upper quadrant area radiated to the back associated with nausea and vomiting. She denies any fevers, chills, constipation or diarrhea. She states that she has been having mild episodes similar to this for the last few months but the duration is now getting longer. I had previously performed a colonoscopy and laparoscopic appendectomy on her Medications/Allergies Home Medications Medication Instructions Recorded Confirmed Last Taken Type pantoprazole 40 mg tablet,delayed 40 mg PO BID #60 tab 07/11/21 08/24/21 Unknown Rx release (Protonix) ondansetron HCl 4 mg tablet 4 mg PO Q6H PRN #20 tab 08/16/21 08/24/21 Unknown Rx oxycodone-acetaminophen 5 mg-325 1 tab PO Q6H PRN #20 tab 08/16/21 08/24/21 Unknown Rx mg tablet (Percocet) lisinopril 20 mg tablet 20 mg PO DAILY #90 tab 08/21/21 08/24/21 Unknown Rx Allergies Allergy/AdvReac Type Severity Reaction Status Date / Time hydrocodone Allergy ALGY-Hives Verified 08/24/21 07:40 prednisone Allergy ALGY-Swell Verified 08/24/21 07:40 Lip/Tongue/Throat PFSH Acute PFSH: Medical History Carcinoid, of appendix GERD (gastroesophageal reflux disease) Hypertension Surgical History H/O esophagogastroduodenoscopy History of delivery S/P laparoscopic appendectomy (11/13/20) S/P partial hysterectomy Status post colonoscopy (03/29/21) Social History Smoking and tobacco status: never smoked Alcohol intake: never Vitals/I&O/Wt Last Vital Signs Temp 97.9 F 08/27/21 07:29 Pulse 72 08/27/21 07:29 Resp 18 08/27/21 07:29 BP 107/68 08/27/21 07:29 Pulse Ox 91 08/27/21 07:29 08/26/21 08/27/21 08/27/21 22:59 06:59 14:59 Intake Total 1050 / 1050 Balance 1050 / 1050 Weight last 48 hrs Weight 315 lb Weight 299 lb Physical Exam Narrative: HEENT: Normocephalic Eye: Sclera /conjunctiva normal Abdomen: Soft to palpation, nontender, nondistended Neurological: Oriented to place person and time Skin: Intact, no lesions appreciated on gross exam Data : 08/27/21 02:49 08/27/21 02:49 A&P Assessment and plan (1) Acute calculous cholecystitis: 36-year-old female who has been dealing with upper abdominal pain rating to the back associated with nausea and vomiting for the last few months. She has been to the ER on 2 occasions in the last 1 week. Her EGD had showed gastritis. Ultrasound gallbladder showed wall thickening with cholelithiasis. WBC is 11.6 and LFTs and lipase were normal. Discussed findings with the patient Plan for laparoscopic possible open appendectomy Procedure, risks, benefits and alternatives have been discussed with the patient who wishes to proceed with surgery. Status: Acute Attestations Medical Necessity Statement*: Acute calculus cholecystitis Coding Level of Care Code Acute Principal Investigator for [facility] Michelle Diagnoses Acute calculous cholecystitis K80.00
[2021-08-27] MEDS: metoclopramide 5 mg/mL SDV 2 mL 10 MG IVP (08:15)
[2021-08-27] MEDS: promethazine 25 mg/mL SDV 1 mL IM (08:17)
--- NOTE | 2021-08-27 08:23 | SUR.PHASEI ---
0800 PT TO OPS BAY 8 DR FLETCHER AT BEDSIDE, PT AWAKE ALERT TALKATIVE, PT WITH SOME SMALL AMT DK GREEN EMESIS TO BASIN, VSS IV TO RT ARM PATENT LR 600ML UP AT FAST RATE PER DR FLETCHER, SCDS PLACED MEDS TO BE GIVEN BY DR FLETCHER, SIDE RAILS UP BED LOCKED CALL LIGHT WITHIN REACH, FAMILY HAS BEEN NOTIFIED AND ARE ON THEIR WAY TO HOSPITAL. CONSENT SIGNED ON CHART.
[2021-08-27 08:40] LABS: Urine Appearance SL Hazy (CLEAR); Urine Color Yellow (Yellow); pH Urine 5 (5-7)
[2021-08-27 08:41] LABS: Add Urine Microscopic? YES; Bacteria Urine 1+ /hpf; Bilirubin Urine Neg (Negative); Blood Urine Neg (Negative); Glucose Urine UA Norm (Normal); Ketones Urine Negative (Negative); Leukocyte Esterase Urine Negative (Negative); Mucus Urine 1+ /hpf; Nitrate Urine Negative (Negative); Protein Urine Neg (Negative); RBC Urine 0-4 /hpf (0-2); Urobilinogen Urine Norm (Negative); WBC Urine 0-4 /hpf (0-5)
[2021-08-27 08:42] LABS: Add Urine Culture? No
--- NOTE | 2021-08-27 09:29 | PM.OP ---
Operative Report Date of procedure: August 27, 2021 Pre-op diagnosis: Acute calculus cholecystitis Post-op diagnosis: same Procedure done: Laparoscopic cholecystectomy Specimens removed/disposition: Gallbladder Surgeon: Ronal Jacobs Anesthesia: General Condition: stable Disposition: PACU Procedure: The patient was taken to the operating room and was intubated under general anesthesia. After the antibiotic had been administered, the abdomen was prepped and draped in a sterile manner. Using a #15 blade, a 1 centimeter infraumbilical curvilinear incision was made and using an open Mary Jane technique the peritoneal cavity was entered. A 10 millimeter port was placed and 15 millimeters of pneumoperitoneum was created. A 10 millimeter, 30 degrees scope was then introduced. Three 5 millimeter ports were placed in the epigastric, midclavicular and the anterior axillary line two fingerbreadths below the costal margin on the right side under the direct visualization. Ratcheted forceps were introduced into the lateral most port and was used to retract the fundus of the gallbladder cephalad and using forceps the infundibulum of the gallbladder was retracted laterally. Using L-hook cautery the peritoneum overlying the Calot's triangle was opened medially and laterally until the cystic duct and the cystic artery were skeletonized. Dissection was carried along the body of the gallbladder and after ensuring critical view of safety, 4 clips applied on the cystic duct and 3 clips applied on the cystic artery and cut leaving, 3 clips on the remaining portion of the duct and 2 clips on the remaining portion of the artery. The rest of the gallbladder was dissected off the liver using L-hook cautery. There was no bleeding or bile leaking noted from the gallbladder fossa and the clips appeared to be in place. An EndoCatch bag was introduced to remove the gallbladder. All the ports were removed under direct visualization and there was no bleeding noted from the port sites. The fascia of the umbilicus was closed using [id number] 0 Vicryl sutures and the subcutaneous tissue was approximated using 3-0 Vicryl sutures. The skin at all four ports were closed using 4-0 Monocryl and Dermabond. A total of 10 millimeters of 0.5% Marcaine was infiltrated around the port sites. The patient was stable throughout the procedure.
[2021-08-27] MEDS: labetalol 5 mg/mL SDV 20mL IVP (09:54)
--- NOTE | 2021-08-27 09:57 | ANE.PACU2 ---
Inpatient post-anesthesia follow up: Airway intact: Yes Vital signs: Temperature 98.5 F Pulse Rate 109 Respiratory Rate 22 Blood Pressure 191/82 Pulse Oximetry 100 Oxygen Delivery Me thod Room Air Oxygen Flow Rate 8 Fraction of Inspir ed Oxygen Hydration adequate: Yes Nausea and vomiting: No Pain level: 1 Mental status: Baseline
[2021-08-27] MEDS: fentaNYL 50 mcg/mL INJ 2mL IVP (10:05)
--- NOTE | 2021-08-27 10:11 | SUR.PHASEI ---
0941 PT TO PACU 2 PT WITH GOOD RESP NOTED ABDOMEN SOFT WITH 4 SITES D/I WITH SKIN GLUE, IV TO LT FOREARM WITH LR INFUSING AT FAST RATE PER DR FLETCHER. SCDS ON PT AWAKES AND VERBALIZED APPROP , DENIES PAIN AND NAUSEA AT THIS TIME.
--- NOTE | 2021-08-27 10:12 | ANE.PACU2 ---
Inpatient post-anesthesia follow up: Airway intact: Yes Vital signs: Temperature 98.5 F Pulse Rate 80 Respiratory Rate 19 Blood Pressure 156/83 Pulse Oximetry 94 Oxygen Delivery Me thod Room Air Oxygen Flow Rate 8 Fraction of Inspir ed Oxygen Hydration adequate: Yes Nausea and vomiting: No Pain level: 3 Mental status: Baseline
--- NOTE | 2021-08-27 10:18 | SUR.PHASEII ---
0955 PT ON RA, GOOD RESP EFFORT, SEE LABETOLOL GIVEN EARLIER PER DR FLETCHER ORDER FOR BP AND HR. 1005 PT NOW RESTING QUIETLY, HR SR, NO ECTOPY, VSS SEE PAIN MED GIVEN FOR PT C/O OF PAIN OF 10/07
[2021-08-27] MEDS: oxyCODONE-APAP 5-325 mg Tablet 1 TAB PO (12:15)
--- NOTE | 2021-08-29 08:51 | P.DS_ITS ---
Discharge Providers Date of Admission: 08/27/21 04:03 Date of Discharge: August 29, 2021 Attending Provider at Admission: Ronal Jacobs MD Attending Provider at Discharge: Ronal Jacobs MD Primary Care Provider: Kosta Hart MD Diagnoses at Discharge Discharge Diagnosis (1) Acute calculous cholecystitis: Status: Resolved Reason for Visit Reason for Visit: Acute cholecystitis Brief History: Shani Baron is a 36 year old female who has been dealing with upper abdominal pain since May 2021.? Patient had an EGD on 08/24/2021 which showed mild gastritis and she is currently on Protonix.? Patient presented to the ER last week as well as last night with complaints of severe abdominal pain mainly in the epigastric right upper quadrant area radiated to the back associated with nausea and vomiting.? She denies any fevers, chills, constipation or diarrhea.? She states that she has been having mild episodes similar to this for the last few months but the duration is now getting longer. Hospital Course Hospital Course The patient was admitted to the hospital overnight and underwent laparoscopic cholecystectomy. She was discharged home later that day. At time of discharge she is tolerating a liquid diet, vital signs are stable and her pain controlled with oral pain medications. Discharge Data Studies Completed and Pending Completed Studies During Hospitalization Category Date Time Status US gall bladder 57046 Urgent Ultrasound 08/27/21 02:37 Completed Pending at discharge Category Date Time Status ES surgery / GI images Routine Exams 08/27/21 07:03 Taken Pathology: Surgical [PTH] Routine Pth 08/27/21 09:43 Received Radiology Impressions Gallbladder Ultrasound 08/27/21 02:37 IMPRESSION: Gallstone with mild gallbladder wall thickening, findings that may represent gallstone cholecystitis. Laboratory Results WBC 11.6 10^3/uL (4.0-10.0) H 08/27/21 02:49 RBC 4.24 10^6/uL (4.1-5.3) 08/27/21 02:49 Hgb 12.8 g/dL (11.5-15.3) 08/27/21 02:49 Hct 38.6 % (37.0-47.0) 08/27/21 02:49 MCV 91.0 fl (81-99) 08/27/21 02:49 MCH 30.2 pg (28.0-34.0) 08/27/21 02:49 MCHC 33.2 g/dL (30.0-36.0) 08/27/21 02:49 RDW 12.7 % (12.1-15.1) 08/27/21 02:49 Plt Count 259 10^3/cmm (130-400) 08/27/21 02:49 MPV 10.6 fL (7.4-10.4) H 08/27/21 02:49 Neut % (Auto) 68.6 % 08/27/21 02:49 Lymph % (Auto) 21.2 % 08/27/21 02:49 [place] % (Auto) 7.0 % 08/27/21 02:49 Eos % (Auto) 2.6 % 08/27/21 02:49 Baso % (Auto) 0.4 % 08/27/21 02:49 Neut # (Auto) 7.99 10^3/uL (1.8-7.7) H 08/27/21 02:49 Lymph # (Auto) 2.5 10^3/uL (0.8-4.8) 08/27/21 02:49 [place] # (Auto) 0.8 10^3/uL (0.2-0.9) 08/27/21 02:49 Eos # (Auto) 0.3 10^3/uL (0.0-0.8) 08/27/21 02:49 Baso # (Auto) 0.1 10^3/uL (0.0-0.1) 08/27/21 02:49 Nucleated RBC % (auto) 0 % 08/27/21 02:49 Nucleated RBCs # 0.0 /100WBC 08/27/21 02:49 Sodium 134 mmol/L (136-145) L 08/27/21 02:49 Potassium 3.8 mmol/L (3.5-5.1) 08/27/21 02:49 Chloride 99 mmol/L (98-107) 08/27/21 02:49 Carbon Dioxide 21 mmol/L (22-29) L 08/27/21 02:49 Anion Gap 17.8 (5-19) 08/27/21 02:49 BUN 13 mg/dL (6-20) 08/27/21 02:49 Creatinine 0.7 mg/dL (0.5-0.9) 08/27/21 02:49 GFR Calculation 93.6 mL/min (90-130) 08/27/21 02:49 Glucose 121 mg/dL (65-115) H 08/27/21 02:49 Calculated Osmolality 279 mOsm/kg (285-295) L 08/27/21 02:49 Calcium 9.1 mg/dL (8.5-10.5) 08/27/21 02:49 Total Bilirubin 0.6 mg/dL (0.15-1.2) 08/27/21 02:49 AST 17 U/L (0-32) 08/27/21 02:49 ALT 22 U/L (0-33) 08/27/21 02:49 Alkaline Phosphatase 47 IU/L (35-105) 08/27/21 02:49 C-Reactive Protein 65.8 mg/L (0.0-4.9) H 08/27/21 02:49 Total Protein 8.1 g/dL (6.6-8.7) 08/27/21 02:49 Albumin 4.1 g/dL (3.5-5.2) 08/27/21 02:49 Globulin 4.0 g/dL (1.3-4.6) 08/27/21 02:49 Lipase 20 U/L (13-60) 08/27/21 02:49 HCG, Qual Negative (Negative) 08/27/21 02:49 Urine Color Yellow (Yellow) 08/27/21 03:40 Urine Appearance Sl hazy (CLEAR) 08/27/21 03:40 Urine pH 5 (5-7) 08/27/21 03:40 Ur Specific [place] 1.020 (1.005-1.030) 08/27/21 03:40 Urine Protein Neg (Negative) 08/27/21 03:40 Urine Glucose (UA) Norm (Normal) 08/27/21 03:40 Urine Ketones Negative (Negative) 08/27/21 03:40 Urine Blood Neg (Negative) 08/27/21 03:40 Urine Nitrate Negative (Negative) 08/27/21 03:40 Urine Bilirubin Neg (Negative) 08/27/21 03:40 Urine Urobilinogen Norm mg/dL (Negative) 08/27/21 03:40 Ur Leukocyte Esterase Negative (Negative) 08/27/21 03:40 Urine RBC 0-4 /hpf (0-2) H 08/27/21 03:40 Urine WBC 0-4 /hpf (0-5) H 08/27/21 03:40 Ur Squamous Epith Cells 5-10 /hpf (0-5) H 08/27/21 03:40 Uric Acid Crystals 5-10 /hpf H 08/27/21 03:40 Amorphous Sediment Not Reportable 08/27/21 03:40 Urine Bacteria 1+ /hpf (NONE) H 08/27/21 03:40 Urine Mucus 1+ /hpf 08/27/21 03:40 Vitals Last Vital Signs Temp 98.5 F 08/27/21 14:11 Pulse 87 08/27/21 14:11 Resp 18 08/27/21 14:11 BP 166/97 08/27/21 14:11 Pulse Ox 96 08/27/21 14:11 Discharge Plan Discharge Patient Disposition: Home Condition: Stable Prescriptions: Continued pantoprazole [Protonix] 40 mg tablet,delayed release (DR/EC) 40 mg PO BID Qty: 60 2RF lisinopril 20 mg tablet 20 mg PO DAILY Qty: 90 1RF Discharge Orders: Discharge Order (Routine); Ordered 08/27/21 Ordered By: Ronal Jacobs Referrals: Reynaldo Velasquez DO [Physician] - 7-10 days (Please call tomorrow morning to schedule a hospital follow-up appointment. ) Ronal Jacobs MD [Physician] - 2 weeks (Please call tomorrow morning to schedule a follow-up appointment. ) Patient Instructions: Oxycodone/Acetaminophen (By mouth), Laxative, Stool S ofteners (By mouth), Ondansetron (By mouth), GI (Gastrointestinal) Soft Diet (GEN), Laparoscopic Cholecystectomy (GEN), Opioid Safety, Post Anesthesia Care Activity Restrictions/Additional Instructions: Diet Advance to normal diet as tolerated, increase fluid intake as much as possible. Activity Avoid strenuous activity for 2 weeks but continue with daily activities including walking as tolerated. Do not lift more than 10 pounds for 2 weeks Return to work/school You can return to work/ school whenever you feel ready as long as you don?t have to lift more than 10 pounds at work. If you have paperwork that needs to be completed for time off from work, please contact my office Driving You can resume driving once you stop using narcotic pain medications, and transition to non-opioid pain medications like Tylenol, Motrin, Aleve, etc. Medications Pain Take opioid pain medications as prescribed and transition to non-opioid pain medications like Tylenol, Motrin, Aleve etc. over the next few days. The goal of the pain medications is to make the pain bearable and not to be pain free since you recently had surgery. Resume all home medications after surgery as per the medication reconciliation list Nausea Nausea is common after surgery, take nausea medications as needed and stay on a liquid bland diet until nausea resolves. Constipation The combination of surgery, anesthesia and pain medications can result in constipation. Take stool softeners as prescribed. If you do not have a bowel movement in 3 days, please take an [id number] laxative like MiraLAX to address the constipation. Shower It is ok to shower but avoid getting the wound wet for 48 hours after surgery. Do not soak in bathtub, swimming pool or hot tub for 2 weeks. Wound care If glue has been used on your incisions after surgery, the glue on the incision will peel slowly over the next two weeks. The stitches used are dissolvable and will not need to be removed. Do not apply antibiotics or other medications on the incision Problems with the wound: you can develop some redness around the incision from bruising after surgery. If there is increasing pain, redness, tenderness around the incision with or without drainage, please contact my office to rule out an infection. Sometimes the skin at the incisions can separate, resulting in reopening of the wound. Cover the wound with antibiotic cream and sterile dressings and contact my office. Contact physician Call the office at [phone] during office hours or go the Emergency Room ?Fever to 100.4 or greater ?Shaking chills ?Pain that increases over time ?Redness, warmth, or pus draining from incision sites ?Persistent nausea or inability to take in liquids Discharge Attestations Time Spent in Discharge Care*: less than 30 min Quality Metrics Clinical Quality Measures [ No reported AMI, CVA or VTE this stay] Coding Level of Care Code Acute Chg [facility] note Diagnoses Acute calculous cholecystitis K80.00
== END 2021-08-27 14:14 | disposition home or self-care (01) ==
LOC: ER 04:17 → MEDSURG 04:47
PROVIDERS: Admitting Provider Surgery; Emergency Provider Emergency Medicine; PCP Neurological Surgery; Visit Provider Surgery
PROC: 0FT44ZZ Resection of Gallbladder, Percutaneous Endoscopic Approach (ICD-10-PCS; CPT 47562; 2021-08-27 08:00)
DX: K80.00 Calculus of gallbladder with acute cholecystitis without obstruction (principal); E66.01 Morbid (severe) obesity due to excess calories; Z68.43 Body mass index [BMI] 50.0-59.9, adult
CPT/HCPCS: 47562; 76705; 80053; 81001; 83690; 84703; 85025; 86140; 88304; 96365; 96367; 96375; 96376; 99285; C9113; G0378; J0330; J1100; J1170; J2405; J2543; J2550; J2704; J2765; J3010; J3490; J7030

== ENCOUNTER 2021-08-29 13:55 | Outpatient (CLI) | payer BC, SELFPAY ==
[2021-08-29 14:29] LABS: Basophils # 0.1 10^3/uL (0.0-0.1); Basophils % 0.6 %; Eosinophils # 1.1 10^3/uL (0.0-0.8); Eosinophils % 12.9 %; Hematocrit 35.3 % (37.0-47.0); Hemoglobin 11.6 g/dL (11.5-15.3); Lymphocytes # 3.5 10^3/uL (0.8-4.8); Lymphocytes % 42.1 %; Mean Corpuscular HGB Conc 32.9 g/dL (30.0-36.0); Mean Corpuscular Volume 91.2 fl (81-99); Mean Platelet Volume 10.4 fL (7.4-10.4); Monocytes # 0.6 10^3/uL (0.2-0.9); Monocytes % 6.6 %; Neutrophils # 3.13 10^3/uL (1.8-7.7); Neutrophils % 37.4 %; Nucleated Red Blood Cells % 0 %; Platelet Count 259 10^3/cmm (130-400); Red Blood Count 3.87 10^6/uL (4.1-5.3); Red Cell Distribution Width 12.9 % (12.1-15.1); White Blood Count 8.4 10^3/uL (4.0-10.0)
[2021-08-29 14:46] LABS: Alanine Aminotransferase 25 U/L (0-33); Alkaline Phosphatase 48 IU/L (35-105); Anion Gap 13.3 (5-19); Aspartate Amino Transferase 21 U/L (0-32); Blood Urea Nitrogen 12 mg/dL (6-20); Calcium 8.7 mg/dL (8.5-10.5); Carbon Dioxide 26 mmol/L (22-29); Chloride 101 mmol/L (98-107); Globulin 3.2 g/dL (1.3-4.6); Glomerular Filtration Rate 93.6 mL/min (90-130); Glucose 108 mg/dL (65-115); Lipase 25 U/L (13-60); Osmolality Calculated 284 mOsm/kg (285-295); Potassium 3.3 mmol/L (3.5-5.1); Sodium 137 mmol/L (136-145); Total Bilirubin 0.4 mg/dL (0.15-1.2); Total Protein 7.2 g/dL (6.6-8.7)
== END 2021-08-29 13:56 | disposition home or self-care (01) ==
LOC: LAB 13:58
PROVIDERS: PCP Neurological Surgery; Visit Provider Surgery
DX: M79.10 Myalgia, unspecified site (principal)
CPT/HCPCS: 80053; 83690; 85025

== ENCOUNTER → 2022-11-30 12:57 | Outpatient (BNVA) | payer BC, SELFPAY | PROVIDERS: PCP Family Medicine Adult Medicine; Visit Provider Registered Nurse Neonatal Intensive Care | DX: J02.9 Acute pharyngitis, unspecified (principal) | CPT/HCPCS: 87880 ==

== ENCOUNTER 2022-12-06 07:37 | Outpatient (CLI) | payer BC, SELFPAY ==
--- NOTE | 2022-12-06 08:09 | XR_ITS ---
WS: [id number] Chest 2 views, 12/06/2022 Clinical Data: HYPERTENSION Comparison: Two-view chest, 04/01/2018. Findings: No nodules, masses or effusions are seen. The heart is normal. The pulmonary vascularity is not increased. No pneumonia or pneumothorax is seen. There are clips in the right upper quadrant fro m a cholecystectomy. Impression: Negative chest.
[2022-12-06 08:15] LABS: Basophils % 0.4 %; Eosinophils # 0.2 10^3/uL (0.0-0.8); Eosinophils % 2.1 %; Hematocrit 42.3 % (36-47); Lymphocytes # 2.7 10^3/uL (0.8-4.8); Lymphocytes % 35.4 %; Mean Corpuscular Hemoglobin 30.7 pg (27-33); Mean Corpuscular Volume 90.2 fl (85-98); Mean Platelet Volume 10.5 fL (7.4-10.4); Monocytes # 0.5 10^3/uL (0.2-0.9); Monocytes % 6.9 %; Neutrophils # 4.19 10^3/uL (1.8-7.7); Neutrophils % 54.9 %; Nucleated Red Blood Cells % 0 %; Platelet Count 246 10^3/cmm (157-399); Red Blood Count 4.69 10^6/uL (3.85-5.65); Red Cell Distribution Width 12.9 % (12.1-15.1); White Blood Count 7.63 10^3/uL (3.29-11.43)
[2022-12-06 08:35] LABS: Anion Gap 13.3 (5-19); Blood Urea Nitrogen 15 mg/dL (6-20); Calcium 9.4 mg/dL (8.5-10.5); Carbon Dioxide 28 mmol/L (22-29); Chloride 102 mmol/L (98-107); Glomerular Filtration Rate 93.2 mL/min (90-130); Glucose 83 mg/dL (65-115); Osmolality Calculated 288 mOsm/kg (285-295); Potassium 4.3 mmol/L (3.5-5.1); Sodium 139 mmol/L (136-145)
--- NOTE | 2022-12-06 09:25 | ECG_ITS ---
[facility] Test Date: 2022-12-06 Pat Name: Shani Baron Department: Room: Gender: Female Crowning Inspector: : 1985 Requested By: Elijah Pino Order Number: [id number] David MD: Ivy Berger M.D. Measurements Intervals [place] Rate: 73 P: 28 LA: 139 QRS: 51 QRSD: 97 T: 54 QT: 366 QTc: 405 Interpretive Statements SINUS RHYTHM Compared to ECG 04/01/2018 16:46:24 No significant changes Electronically Signed On 12-06-2022 17:22:19 CDT by Ivy Berger M.D. [email or web address]
== END 2022-12-06 07:38 | disposition home or self-care (01) ==
PROVIDERS: PCP Family Medicine Adult Medicine; Visit Provider Nurse Practitioner Adult Health
DX: I10 Essential (primary) hypertension (principal); Z68.41 Body mass index [BMI] 40.0-44.9, adult
CPT/HCPCS: 36415; 71046; 80048; 85025; 93005

== ENCOUNTER → 2023-03-02 10:46 | Outpatient (BNVA) | payer BC, SELFPAY | PROVIDERS: PCP Family Medicine Adult Medicine; Visit Provider Emergency Medicine | DX: J02.9 Acute pharyngitis, unspecified (principal) | CPT/HCPCS: 87071; 87880 ==

== ENCOUNTER 2023-10-23 09:11 | Outpatient (CLI) | payer BC, SELFPAY ==
--- NOTE | 2023-10-23 09:24 | XR_ITS ---
WS: [id number] CHEST 2 VIEWS HISTORY: OBESITY COMPARISON: 12/06/2022 Lungs: Clear with no abnormality. No pleural effusion or pneumothorax. Cardiac size: Normal. Mediastinum/Aorta: Normal mediastinum. Bones: Normal. Prior cholecystectomy. XR/XR chest 2V* [id number] IMPRESSION: Normal chest.
[2023-10-23 10:20] LABS: Anion Gap 16.2 (5-19); Blood Urea Nitrogen 13 mg/dL (6-20); Calcium 9.3 mg/dL (8.5-10.5); Carbon Dioxide 23 mmol/L (22-29); Chloride 102 mmol/L (98-107); Glomerular Filtration Rate 92.7 mL/min (90-130); Glucose 99 mg/dL (65-115); Osmolality Calculated 284 mOsm/kg (285-295); Potassium 4.2 mmol/L (3.5-5.1); Sodium 137 mmol/L (136-145)
== END 2023-10-23 09:12 | disposition home or self-care (01) ==
LOC: LAB 09:19
PROVIDERS: PCP Family Medicine Adult Medicine; Visit Provider Surgery Plastic and Reconstructive Surgery
DX: Z01.818 Encounter for other preprocedural examination (principal); E66.9 Obesity, unspecified; Z90.49 Acquired absence of other specified parts of digestive tract
CPT/HCPCS: 36415; 71046; 80048

== ENCOUNTER → 2023-10-27 10:07 | Outpatient (BNVA) | payer BC, SELFPAY | PROVIDERS: PCP Family Medicine Adult Medicine; Visit Provider Internal Medicine Cardiovascular Disease | DX: E66.9 Obesity, unspecified (principal) | CPT/HCPCS: 93005 ==

== ENCOUNTER 2024-07-06 09:12 | Outpatient (CLI) | payer BC, SELFPAY ==
[2024-07-06 09:46] LABS: Basophils % 0.4 %; Eosinophils # 0.2 10^3/uL (0.0-0.8); Eosinophils % 2.4 %; Lymphocytes # 2.5 10^3/uL (0.8-4.8); Lymphocytes % 34.9 %; Mean Corpuscular Volume 88.3 fl (85-98); Mean Platelet Volume 10.2 fL (7.4-10.4); Monocytes # 0.5 10^3/uL (0.2-0.9); Neutrophils # 3.93 10^3/uL (1.8-7.7); Neutrophils % 55.2 %; Nucleated Red Blood Cells % 0 %; Platelet Count 267 10^3/cmm (157-399); Red Blood Count 4.87 10^6/uL (3.85-5.65); White Blood Count 7.13 10^3/uL (3.29-11.43)
[2024-07-06 10:27] LABS: Alanine Aminotransferase 22 U/L (0-33); Albumin Level 4.5 g/dL (3.5-5.2); Alkaline Phosphatase 48 U/L (35-105); Anion Gap 15.3 (5-19); Aspartate Amino Transferase 21 U/L (0-32); Blood Urea Nitrogen 13 mg/dL (6-20); Calcium 9.7 mg/dL (8.5-10.5); Carbon Dioxide 25 mmol/L (22-29); Chloride 101 mmol/L (98-107); Chol HDL Ratio 4.42 mg/dL (0.0-4.40); Cholesterol 230 mg/dL (0-200); Ferritin 63 ng/mL (15-150); Globulin 3.6 g/dL (1.3-4.6); Glomerular Filtration Rate 92.2 mL/min (90-130); Glucose 97 mg/dL (65-115); HDL Cholesterol 52 mg/dL (60-100); Iron 123 ug/dL (37-145); LDL Cholesterol Calculated 141 mg/dL (50-129); LDL HDL Ratio 2.71 RATIO (0.00-3.22); Osmolality Calculated 284 mOsm/kg (285-295); Potassium 4.3 mmol/L (3.5-5.1); Sodium 137 mmol/L (136-145); Thyroid Stimulating Hormone 1.68 uIU/mL (0.27-4.20); Total Bilirubin 0.6 mg/dL (0.15-1.2); Total Iron Binding Capacity 361 mcg/dl; Total Protein 8.1 g/dL (6.6-8.7); Triglycerides 187 mg/dL (0-150); Unsaturated Iron Binding 238 ug/dL (112-347); Vitamin B12 545 pg/mL (232-1245)
== END 2024-07-06 09:13 | disposition home or self-care (01) ==
LOC: LAB 09:13
PROVIDERS: PCP Family Medicine; Visit Provider Family Medicine
DX: Z13.6 Encounter for screening for cardiovascular disorders (principal)
CPT/HCPCS: 36415; 80053; 80061; 82607; 82728; 83540; 83550; 84443; 85025; 87624

== ENCOUNTER 2024-07-13 15:45 | Outpatient (CLI) | payer BC, SELFPAY ==
--- NOTE | 2024-07-13 16:00 | MM_ITS ---
WS: [id number] BILATERAL 3D TOMOSYNTHESIS DIGITAL SCREENING MAMMOGRAPHY WITH CAD CLINICAL INFORMATION: screening HISTORY: Screening mammogram. COMPARISON: Baseline TECHNIQUE: Bilateral CC and MLO views. FINDINGS: Swirling breast parenchymal pattern likely due to prior breast reduction. Scattered fibroglandular densities bilaterally. No suspicious focal mass, asymmetry, calcifications, or architectural distortion. No evidence of malignancy. A few tiny incidental punctate calcifications. MM/MM scr tomosynthesis [id number] IMPRESSION: DENSITY: There are scattered areas of fibroglandular density. BI-RADS: 2 - Benign. FOLLOW UP: 1 Year Follow-up Recommend return to annual screening mammography.
== END 2024-07-13 15:46 | disposition home or self-care (01) ==
PROVIDERS: PCP Family Medicine; Visit Provider Family Medicine
DX: Z12.31 Encounter for screening mammogram for malignant neoplasm of breast (principal); R92.323 Mammographic fibroglandular density, bilateral breasts
CPT/HCPCS: 77063; 77067